=== PATIENT | female | born 1985 | race Caucasian/White ===

== ENCOUNTER 2020-03-24 14:35 | Inpatient (IN) | payer OTHER ==
[~2020-03-24] VITALS: Ht 172.7 cm; Wt 127.2 kg
[2020-03-24] MEDS ORDERED: SODIUM CHLORIDE 0.9% 1000ML 1,000 ML IV STA (14:52)
[2020-03-24] MEDS ORDERED: ONDANSETRON HCL INJ 2MG/ML 2ML 2 MG/ML VIAL IV STA (14:52)
[2020-03-24] MEDS ORDERED: MORPHINE SULFATE INJ 4 MG/ML INJ 1ML IV STA (14:52)
[2020-03-24] MEDS ORDERED: PANTOPRAZOLE 40 MG 10ML VIAL IV STA (14:52)
[2020-03-24 15:20] LABS: BASOPHILS % 0.5 % (0.0-1.0); EOSINOPHILS # (AUTO) 0.2 (0.0-0.4); EOSINOPHILS % 2.8 % (0.0-6.0); HEMATOCRIT 35.8 % (34.2-44.1); HEMOGLOBIN 11.6 g/dL (12.0-16.0); LYMPHOCYTES # (AUTO) 2.7 (1.0-3.2); LYMPHOCYTES % 31.6 % (18.0-39.1); MEAN CORPUSCULAR HEMOGLOBIN 24.9 pg (28-32); MEAN CORPUSCULAR HGB CONC 32.4 g/dL (31-35); MONOCYTES # (AUTO) 0.8 (0.2-0.8); MONOCYTES % 9.7 % (4.4-11.3); NEUTROPHILS # (AUTO) 4.7 (2.1-6.9); PLATELET COUNT 246 x10e3/uL (140-360); RED BLOOD COUNT 4.65 x10e6/uL (3.6-5.1); RED CELL DISTRIBUTION WIDTH 14.6 % (11.7-14.4)
[2020-03-24 15:31] LABS: INR 0.96; PROTHROMBIN TIME 13.3 seconds (11.9-14.5)
[2020-03-24 15:32] LABS: PARTIAL THROMBOPLASTIN TIME 27.9 seconds (23.8-35.5)
[2020-03-24 15:41] LABS: ALANINE AMINOTRANSFERASE 18 IU/L (0-55); ALBUMIN 3.1 g/dL (3.5-5.0); ALBUMIN/GLOBULIN RATIO 0.8 (0.8-2.0); ALKALINE PHOSPHATASE 58 IU/L (40-150); AMYLASE 42 U/L (25-125); ANION GAP 15.8 mmol/L (8-16); BLOOD UREA NITROGEN 6 mg/dL (7-26); BUN/CREATININE RATIO 7 (6-25); CALCIUM 8.5 mg/dL (8.4-10.2); CARBON DIOXIDE 23 mmol/L (22-29); CHLORIDE 104 mmol/L (98-107); CREATINE KINASE 92 IU/L (29-168); CREATININE, SERUM 0.83 mg/dL (0.57-1.11); EST GLOMERULAR FILTRATION RATE > 60 ML/MIN (60-); GLUCOSE 95 mg/dL (74-118); LIPASE 26 U/L (8-78); MAGNESIUM 1.6 MG/DL (1.3-2.1); POTASSIUM 3.8 mmol/L (3.5-5.1); SODIUM 139 mmol/L (136-145)
--- NOTE | 2020-03-24 17:03 | Diagnostic Imaging Report ---
EXAM: CT of the abdomen and pelvis with intravenous contrast HISTORY: ^LUQ/WILBUR/RUQ ABD PAIN COMPARISON: None TECHNIQUE: Abdomen and pelvis were scanned utilizing a multidetector helical scanner. Coronal and sagittal reformations were obtained. Scan was performed during the portal venous phase. DOSE REDUCTION: The examination was performed according to the departmental dose-optimization program, which includes automated exposure control, adjustment of the mA and/or kV according to patient size and/or use of iterative reconstruction technique. FINDINGS: LINES and TUBES: None. LOWER THORAX: Unremarkable. HEPATOBILIARY: No focal hepatic lesions. No biliary ductal dilation. GALLBLADDER: No radio-opaque stones or sludge. No wall thickening. SPLEEN: No splenomegaly. PANCREAS: No focal masses or ductal dilatation. ADRENALS: No adrenal nodules. KIDNEYS/URETERS: Kidneys enhance symmetrically. No hydronephrosis. No cystic or solid mass lesions. No stones. GI TRACT: Distal descending colon/sigmoid wall thickening with surrounding soft tissue stranding. No abnormal distention or evidence of bowel obstruction. PELVIC ORGANS/BLADDER: Unremarkable. LYMPH NODES: No lymphadenopathy. VESSELS: Unremarkable PERITONEUM / RETROPERITONEUM: No free air or fluid. BONES: Unremarkable SOFT TISSUES: Unremarkable. IMPRESSION: Left lower quadrant colitis, inflammatory versus infectious. Signed by: Edgar Weber MD on 03/24/2020 4:59 PM
--- NOTE | 2020-03-24 17:05 | Diagnostic Imaging Report ---
TECHNIQUE: Frontal view of the chest. INDICATION: ^ABD PAIN COMPARISON: None. IMPRESSION: Lines and hardware: None. Heart and mediastinum: Unremarkable. Lungs and pleura: No focal airspace consolidation. No pleural effusion. No pneumothorax. Soft tissues and bones: No acute abnormality. Signed by: Edgar Weber MD on 03/24/2020 5:02 PM
[2020-03-24] MEDS ORDERED: MORPHINE SULFATE INJ 4 MG/ML INJ 1ML IV PRN (17:30)
--- NOTE | 2020-03-24 18:01 | Emergency Department Note ---
History of Present Illnes History of Present Illness Chief Complaint: Abdominal Complaints History of Present Illness This is a 34 year old female abdominal pain, states that she was scheduled for CT, EGD and colonoscopy. Reports that pain has been present for 2 weeks, reports pain after drinking and eating. Historian: Patient Arrival Mode: Car Indirect Fire Infantryman Required: No Location: ABDOMEN Quality: PAIN Radiation: Reports non-radiation Severity: severe Onset quality: gradual Timing of current episode: intermittent Progression: worsening Chronicity: new Context: Denies recent illness Relieving factors: none Exacerbating factors: eating Associated symptoms: Reports denies other symptoms Past Medical/Family History Physician Review I have reviewed the patient's past medical and family history. Any updates have been documented here. Past Medical History Recent Fever: No Clinical Suspicion of Infectio: No New/Unexplained Change in Ment: No Past Medical History: None Past Surgical History: Social History Smoking Cessation: Never Smoker Counseling Performed: No Alcohol Use: None Any Illegal Drug Use: No TB Exposure/Symptoms: No Physically hurt or threatened: No Other Any Pre-Existing Lines (PICC,: No Is patient up to date on immun: Yes Last Flu: utd Last Pneumovax: utd Review of Systems Review of Systems Constitutional: Reports no symptoms EENTM: Reports no symptoms Cardiovascular: Reports no symptoms Respiratory: Reports no symptoms Gastrointestinal: Reports as per HPI Genitourinary: Reports no symptoms Musculoskeletal: Reports no symptoms Integumentary: Reports no symptoms Neurological: Reports no symptoms Psychological: Reports no symptoms Endocrine: Reports no symptoms Hematological/Lymphatic: Reports no symptoms Physical Exam Related Data Allergies: Coded Allergies: promethazine (Verified Allergy, Severe, pain, 03/24/20) Triage Vital Signs Vital Signs Date Time Temp Pulse Resp B/P (MAP) Pulse Ox O2 Delivery O2 Flow Rate FiO2 03/24/20 14:49 97.1 128 18 154/98 100 Vital signs reviewed: Yes Physical Exam CONSTITUTIONAL Constitutional: Present well-developed, Present well-nourished HENT HENT: Present normocephalic, Present atraumatic, Present oropharynx clear/moist, Present nose normal HENT L/R: Present left ext ear normal, Present right ext ear normal EYES Eyes: Reports PERRL, Reports conjunctivae normal NECK Neck: Present ROM normal PULMONARY Pulmonary: Present effort normal, Present breath sounds normal CARDIOVASCULAR Cardiovascular: Present regular rhythm, Present heart sounds normal, Present capillary refill normal, Present normal rate GASTROINTESTINAL Abdominal: Present soft, Present tender (LUQ AND LLQ MOD TENDERNESS WITHOUT R/G); Absent left CVA tenderness, Absent right CVA tenderness GENITOURINARY Genitourinary: Present exam deferred SKIN Skin: Present warm, Present dry MUSCULOSKELETAL Musculoskeletal: Present ROM normal NEUROLOGICAL Neurological: Present alert, Present oriented x 3, Present no gross motor or sensory deficits PSYCHOLOGICAL Psychological: Present mood/affect normal, Present judgement normal Results Laboratory Result Diagram: 03/24/20 1505 03/24/20 1505 Laboratory Laboratory Tests Test 03/24/20 15:05 White Blood Count 8.57 x10e3/uL (4.8-10.8) Red Blood Count 4.65 x10e6/uL (3.6-5.1) Hemoglobin 11.6 g/dL (12.0-16.0) Hematocrit 35.8 % (34.2-44.1) Mean Corpuscular Volume 77.0 fL (81-99) Mean Corpuscular Hemoglobin 24.9 pg (28-32) Mean Corpuscular Hemoglobin Concent 32.4 g/dL (31-35) Red Cell Distribution Width 14.6 % (11.7-14.4) Platelet Count 246 x10e3/uL (140-360) Neutrophils (%) (Auto) 55.0 % (38.7-80.0) Lymphocytes (%) (Auto) 31.6 % (18.0-39.1) Monocytes (%) (Auto) 9.7 % (4.4-11.3) Eosinophils (%) (Auto) 2.8 % (0.0-6.0) Basophils (%) (Auto) 0.5 % (0.0-1.0) Neutrophils # (Auto) 4.7 (2.1-6.9) Lymphocytes # (Auto) 2.7 (1.0-3.2) Monocytes # (Auto) 0.8 (0.2-0.8) Eosinophils # (Auto) 0.2 (0.0-0.4) Basophils # (Auto) 0.0 (0.0-0.1) Absolute Immature Granulocyte (auto 0.03 x10e3/uL (0-0.1) Prothrombin Time 13.3 seconds (11.9-14.5) Prothromb Time International Ratio 0.96 Activated Partial Thromboplast Time 27.9 seconds (23.8-35.5) Sodium Level 139 mmol/L (136-145) Potassium Level 3.8 mmol/L (3.5-5.1) Chloride Level 104 mmol/L (98-107) Carbon Dioxide Level 23 mmol/L (22-29) Anion Gap 15.8 mmol/L (8-16) Blood Urea Nitrogen 6 mg/dL (7-26) Creatinine 0.83 mg/dL (0.57-1.11) Estimat Glomerular Filtration Rate > 60 ML/MIN (60-) BUN/Creatinine Ratio 7 (6-25) Glucose Level 95 mg/dL (74-118) Calcium Level 8.5 mg/dL (8.4-10.2) Magnesium Level 1.6 MG/DL (1.3-2.1) Total Bilirubin 0.8 mg/dL (0.2-1.2) Aspartate Amino Transf (AST/SGOT) 16 IU/L (5-34) Alanine Aminotransferase (ALT/SGPT) 18 IU/L (0-55) Alkaline Phosphatase 58 IU/L (40-150) Creatine Kinase 92 IU/L (29-168) Creatine Kinase MB 0.90 ng/mL (0-5.0) Troponin I 0.008 ng/mL (0-0.300) Total Protein 6.8 g/dL (6.5-8.1) Albumin 3.1 g/dL (3.5-5.0) Globulin 3.7 g/dL (2.3-3.5) Albumin/Globulin Ratio 0.8 (0.8-2.0) Amylase Level 42 U/L (25-125) Lipase 26 U/L (8-78) Human Chorionic Gonadotropin, Qual Negative (NEGATIVE) Lab results reviewed: Yes Imaging Imaging results reviewed: Yes Impressions Procedure: [id number] CT/CT ABDOMEN/PELVIS W Exam Date: Exam Time: REPORT STATUS: Signed EXAM: CT of the abdomen and pelvis with intravenous contrast HISTORY: ^LUQ/WILBUR/RUQ ABD PAIN COMPARISON: None TECHNIQUE: Abdomen and pelvis were scanned utilizing a multidetector helical scanner. Coronal and sagittal reformations were obtained. Scan was performed during the portal venous phase. DOSE REDUCTION: The examination was performed according to the departmental dose-optimization program, which includes automated exposure control, adjustment of the mA and/or kV according to patient size and/or use of iterative reconstruction technique. FINDINGS: LINES and TUBES: None. LOWER THORAX: Unremarkable. HEPATOBILIARY: No focal hepatic lesions. No biliary ductal dilation. GALLBLADDER: No radio-opaque stones or sludge. No wall thickening. SPLEEN: No splenomegaly. PANCREAS: No focal masses or ductal dilatation. ADRENALS: No adrenal nodules. KIDNEYS/URETERS: Kidneys enhance symmetrically. No hydronephrosis. No cystic or solid mass lesions. No stones. GI TRACT: Distal descending colon/sigmoid wall thickening with surrounding soft tissue stranding. No abnormal distention or evidence of bowel obstruction. PELVIC ORGANS/BLADDER: Unremarkable. LYMPH NODES: No lymphadenopathy. VESSELS: Unremarkable PERITONEUM / RETROPERITONEUM: No free air or fluid. BONES: Unremarkable SOFT TISSUES: Unremarkable. IMPRESSION: Left lower quadrant colitis, inflammatory versus infectious. Signed by: Edgar Weber MD on 03/24/2020 4:59 PM CXR IMPRESSION: Lines and hardware: None. Heart and mediastinum: Unremarkable. Lungs and pleura: No focal airspace consolidation. No pleural effusion. No pneumothorax. Soft tissues and bones: No acute abnormality. Signed by: Edgar Weber MD on 03/24/2020 5:02 PM Assessment & Plan Medical Decision Making [facility] ABD PAIN - CHECK CBC, CHEM, LIPASE, CARDIAC MARKERS, PREG, UA/CX, CT ABD/PELVIS - R/O DIVERTICULITIS, UTI, COLITIS, PANCREATITIS, RENAL INSUFF, DEHYDRATION, ELECTROLYTE ABNL Reassessment Reassessment DISCUSSED WITH DR HARRIS FOR ADMISSION, DR Rosalia HERNDON OUTSIDE CUTTER Assessment & Plan Final Impression: (1) Colitis (2) Abdominal pain Last Vital Signs Date Time Temp Pulse Resp B/P (MAP) Pulse Ox O2 Delivery O2 Flow Rate FiO2 03/24/20 17:46 98.6 109 16 113/73 99 Medications in the ED Pantoprazole Sodium 40 mg ONCE STAT IV Last administered on 03/24/20at 15:43; Admin Dose 40 MG; Start 03/24/20 at 14:52; Stop 03/24/20 at 14:59; Status DC Morphine Sulfate 4 mg ONCE STAT IV Last administered on 03/24/20at 15:43; Admin Dose 4 MG; Start 03/24/20 at 14:52; Stop 03/24/20 at 14:59; Status DC Ondansetron HCl 4 mg ONCE STAT IV Last administered on 03/24/20at 15:43; Admin Dose 4 MG; Start 03/24/20 at 14:52; Stop 03/24/20 at 14:59; Status DC Sodium Chloride 1,000 ml @ 0 mls/hr Q0M STAT IV Last administered on 03/24/20at 15:43; Admin Dose 999 MLS/HR; Start 03/24/20 at 14:52; Stop 03/24/20 at 14:56; Status DC LG DANG MD Mar 24, 2020 18:01
[2020-03-24] MEDS: PIPER-TAZ 3.375 GM 50 ML IV SCH (18:37)
[2020-03-24] MEDS: SODIUM CHLORIDE 0.9% 1000ML 1,000 ML IV SCH (18:37)
[2020-03-24] MEDS: METRONIDAZOLE 500MG/NS 100ML 100 ML IV SCH (19:54)
[2020-03-24 20:25] VITALS: BP 109/52
[2020-03-24] MEDS ORDERED: METOPROLOL TARTRATE INJ 1 MG/ML VIAL IV PRN (20:30)
[2020-03-24 20:45] VITALS: BP 109/52
[2020-03-24] MEDS: ACETAMINOPHEN 325 MG TAB PO PRN (20:57)
[2020-03-24 21:03] LABS: CLARITY,URINE SL CLOUDY (CLEAR); COLOR,URINE RED (YELLOW)
[2020-03-24 21:04] LABS: BILIRUBIN,URINE SMALL (NEGATIVE); KETONES,URINE NEGATIVE (NEGATIVE); LEUKOCYTE ESTERASE ,URINE NEGATIVE (NEGATIVE); NITRITE,URINE NEGATIVE (NEGATIVE); PROTEIN,URINE DIPSTICK 2+ (NEGATIVE); URINE UROBILINOGEN 0.2 mg/dL (0.2 - 1)
[2020-03-24] MEDS ORDERED: HYDROCODONE/APAP 5MG-325MG TAB PO PRN (21:15)
[2020-03-24 21:18] LABS: BACTERIA,URINE MODERATE /HPF; RBC,URINE >50 /HPF (0-5)
[2020-03-24] MEDS: MORPHINE SULFATE 2 MG/ML SYR 1ML IV PRN (22:25)
[2020-03-24] MEDS: ONDANSETRON HCL INJ 2MG/ML 2ML 2 MG/ML VIAL IV PRN (22:25)
[2020-03-24] MEDS ORDERED: BISACODYL 5 MG TAB EC PO ONE ×3 (22:30→23:30)
[2020-03-24] MEDS ORDERED: CITRATE OF MAGNESIA 300ML BOTTLE PO ONE (23:30)
[2020-03-25] VITALS (8 sets, daily range): BP systolic 90–122; BP diastolic 46–97
--- NOTE | 2020-03-25 01:36 | History and Physical ---
PRIMARY CARE PHYSICIAN: Hitesh Solorzano MD CONSULTING PHYSICIAN: Desmond Jules MD CHIEF COMPLAINT: Abdominal pain. HISTORY OF PRESENT ILLNESS: The patient is a 34-year-old female, who was admitted via the emergency department with abdominal pain. She states that she was scheduled for CT, EGD, and colonoscopy per the emergency department physician's notes. She reported that the pain had been present for 2 weeks and also present after drinking and eating that was gradual in onset, intermittent, and then continued to progressively get worse. She explained to me that she was having back pain, went to see her PCP, Dr. Solorzano, on or about March 02 or . At the time, she was taking steroids, Toradol, prednisone, naproxen, and muscle relaxers for the back pain and the prednisone had been on a 7-day step-down regimen. Then 1 or 2 days after the prednisone, she began having the abdominal pain, which was diffuse all over. She also expressed that she was having diarrhea and nausea, especially with cold liquids. The pain would not cease and became intolerable. After about 3 days of the diarrhea, she noted that she was having bright red blood per rectum, thus she came into the ER for evaluation. PAST MEDICAL HISTORY: Hypertension with her last , but after the the hypertension dissipated, has some history of migraines, has psoriasis. PAST SURGICAL HISTORY: Tubes in her ears as a child. [place] teeth removed. After her , she had tubal ligation. Cysts removed from her head. FAMILY HISTORY: Mother had GI problems with diverticulitis and spastic ileitis. SOCIAL HISTORY: She has a history of smoking about a pack of cigarettes a week for 6 years. She drink alcohol some when she was younger, but has since quit. Denies any illicit drug use. 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 ALLERGIES: THE PATIENT STATES SHE WAS HAVING SOME MIGRAINES AND WENT TO HER DOCTOR'S OFFICE, RECEIVED A DOSE OF PHENERGAN IN THE MUSCLE AT THE RIGHT THIGH AREA AND SHE SAID, SOON SHE RECEIVED IT, THE RIGHT LEG BEGAN BURNING SIGNIFICANTLY AFTER SHE RECEIVED IT. HOME MEDICATIONS: No home medications listed. CURRENT MEDICATIONS: Zosyn, Flagyl, normal saline IV fluids at 100 mL an hour, p.r.n. Zofran, Protonix, Tylenol, metoprolol tartrate 2.5 mg IV every 6 hours p.r.n. for systolic blood pressure greater than 150, Warren, morphine sulfate 1 mg IV every 3 hours p.r.n. for pain. REVIEW OF SYSTEMS: CONSTITUTIONAL: Received Tylenol for fever. Expresses weight gain of about 8 pounds, but unsure what that is from. No complaints of shortness of breath, cough, phlegm, difficulty urinating, psychiatric history. EYES: She wears glasses. EARS, NOSE, THROAT: No complaints. CARDIOVASCULAR: She has had palpitations before when dehydrated. GASTROINTESTINAL: As per history of present illness. She is taking morphine for the abdominal pain. MUSCULOSKELETAL: No complaints of joint pain or muscle discomfort. NEUROLOGIC: Rates her headache a 3/10 on a 0 to 10 pain scale. Morphine is effective. ENDOCRINE: Denies history of diabetes. HEMATOLOGIC: Having bright red blood per rectum. PHYSICAL EXAMINATION: VITAL SIGNS: Temperature 100, which is her T-max, heart rate 111, blood pressure 109/52, respirations 18, and oxygen saturation 100%. Height 5 feet 8 inches, weight 288 pounds. BMI 43.78. GENERAL: Supine in bed. Has bathroom privileges. LUNGS: Clear to auscultation. Respiratory pattern even and unlabored. HEENT: EOMI. NECK: Supple. CARDIOVASCULAR: Regular rate and rhythm. No murmur. ABDOMEN: Bowel sounds are positive. Abdomen tender without guarding. No rebound. Diffuse tenderness, mostly in right lower quadrant and left lower quadrant. EXTREMITIES: No pitting edema. No clubbing, cyanosis, or marked swelling. NEUROLOGIC: GCS 15. Nonfocal. LABORATORY DATA: WBC 8.57, hemoglobin 11.6, hematocrit 35.8, platelets 246. PT 13.3, INR 0.96, PTT 27.9. Sodium 139, potassium 3.8, chloride 104, CO2 of 23, anion gap 15.8, BUN 6, creatinine 0.83, estimated GFR greater than 60, glucose 95, calcium 8.5, magnesium 1.6, total bilirubin 0.8, AST 16, ALT 18, alkaline phosphatase 58. Creatine kinase 92, CK-MB 0.9. Troponin I 0.008. Total protein 6.8, albumin 3.1, amylase 42, lipase 26. HCG, human chorionic gonadotropin qualitative negative. Urinalysis with red color, slightly cloudy clarity, specific gravity 1.015, protein 2+, large amount of blood, negative for nitrites, small amount of bilirubin, leukocyte esterase negative, rbc's greater than 50, moderate amount of bacteria. Serology coronavirus PCR is pending. Microbiology urine culture and sensitivity pending. Chest x-ray negative. CT of the abdomen and pelvis showed left lower quadrant colitis, inflammatory versus infectious. ASSESSMENT AND PLAN: 1. Left lower quadrant colitis. Gastroenterology has been consulted. The patient is currently being prepped for colonoscopy in the morning with Dulcolax and magnesium citrate. The patient is on Zosyn and Flagyl IV antibiotics. 2. Anemia due to acute blood loss. Continue to monitor H and H. Transfuse blood if hemoglobin less than 7. 3. Dehydration. Continue IV fluids normal saline at 100 mL an hour. Monitor renal function, BUN 6, creatinine 0.83. 4. Acute hypomagnesemia. Magnesium level 1.6, replete with 2 g magnesium sulfate IV. 5. Morbid obesity with BMI 43.78. Dietary restrictions. 6. Prophylaxis, Protonix. Billing code [id number]. Time spent 60 minutes. Dictated by Tru Mckenzie NP MD DAVID Santos/CARL /[id number]
[2020-03-25] MEDS: METRONIDAZOLE 500MG/NS 100ML 100 ML IV SCH ×4 (01:45→21:20)
[2020-03-25] MEDS ORDERED: DICYCLOMINE HCL 20 MG TAB PO ONE (01:45)
[2020-03-25] MEDS: MORPHINE SULFATE 2 MG/ML SYR 1ML IV PRN ×3 (01:45→09:11)
[2020-03-25] MEDS ORDERED: CITRATE OF MAGNESIA 300ML BOTTLE PO ONE (05:00)
[2020-03-25] MEDS: ONDANSETRON HCL INJ 2MG/ML 2ML 2 MG/ML VIAL IV PRN ×3 (06:03→11:35)
[2020-03-25] MEDS: PIPER-TAZ 3.375 GM 50 ML IV SCH ×4 (06:03→18:30)
[2020-03-25] MEDS: SODIUM CHLORIDE 0.9% 1000ML 1,000 ML IV SCH (06:38)
[2020-03-25 07:03] LABS: BASOPHILS # (AUTO) 0.1 (0.0-0.1); BASOPHILS % 0.9 % (0.0-1.0); EOSINOPHILS # (AUTO) 0.2 (0.0-0.4); EOSINOPHILS % 1.9 % (0.0-6.0); HEMATOCRIT 35.2 % (34.2-44.1); HEMOGLOBIN 11.2 g/dL (12.0-16.0); LYMPHOCYTES % 22.3 % (18.0-39.1); MEAN CORPUSCULAR HEMOGLOBIN 25.2 pg (28-32); MEAN CORPUSCULAR HGB CONC 31.8 g/dL (31-35); MEAN CORPUSCULAR VOLUME 79.3 fL (81-99); MONOCYTES # (AUTO) 0.8 (0.2-0.8); MONOCYTES % 9.5 % (4.4-11.3); NEUTROPHILS # (AUTO) 5.7 (2.1-6.9); NEUTROPHILS % 64.8 % (38.7-80.0); PLATELET COUNT 219 x10e3/uL (140-360); RED BLOOD COUNT 4.44 x10e6/uL (3.6-5.1); RED CELL DISTRIBUTION WIDTH 14.6 % (11.7-14.4)
[2020-03-25 07:23] LABS: ALANINE AMINOTRANSFERASE 15 IU/L (0-55); ALBUMIN 2.8 g/dL (3.5-5.0); ALBUMIN/GLOBULIN RATIO 0.8 (0.8-2.0); ALKALINE PHOSPHATASE 55 IU/L (40-150); ANION GAP 13.5 mmol/L (8-16); BLOOD UREA NITROGEN 6 mg/dL (7-26); BUN/CREATININE RATIO 7 (6-25); CALCIUM 7.7 mg/dL (8.4-10.2); CARBON DIOXIDE 23 mmol/L (22-29); CHLORIDE 105 mmol/L (98-107); CREATININE, SERUM 0.87 mg/dL (0.57-1.11); EST GLOMERULAR FILTRATION RATE > 60 ML/MIN (60-); GLUCOSE 112 mg/dL (74-118); POTASSIUM 3.5 mmol/L (3.5-5.1); SODIUM 138 mmol/L (136-145)
[2020-03-25 07:54] LABS: MAGNESIUM 1.9 MG/DL (1.3-2.1); PHOSPHORUS 2.9 MG/DL (2.3-4.7)
--- NOTE | 2020-03-25 08:00 | NUR ---
PT NPO FOR PROCEDURE
[2020-03-25] MEDS ORDERED: PANTOPRAZOLE 40 MG 10ML VIAL IV SCH ×2 (09:00→18:30)
[2020-03-25] MEDS ORDERED: DICYCLOMINE HCL 20 MG TAB PO SCH (09:00)
--- NOTE | 2020-03-25 09:33 | NUR ---
RCD PT AT BED PT IS ALERT AND ORIENTED PT RESTING ON BED IV PATENT AND RUNNING 125 ML HR BED LOW AND LOCKED CALL LIGHT IN REACH
[2020-03-25 11:18] LABS: EOSINOPHILS % (MANUAL) 1 % (0-7); LYMPHOCYTES % (MANUAL) 20 % (19-48); MONOCYTES % (MANUAL) 7 % (3.4-9.0); NEUTROPHILS % (MANUAL) 72 % (40-74)
--- NOTE | 2020-03-25 12:54 | NUR ---
DR Rosalia HERNDON ASKED ABOT THE CONDITION OF THE PT THE PT IS NOT CLEAR STILL IN BROWN STOOL GOT THE ORDER TAP WATER ENEMA 2 TIMES
--- NOTE | 2020-03-25 13:15 | NUR ---
TAP WATER ENEMA (2 ) GIVEN
[2020-03-25] MEDS ORDERED: MORPHINE SULFATE 2 MG/ML SYR 1ML IV STA (13:27)
[2020-03-25] MEDS ORDERED: MIDAZOLAM HCL 5 MG/ML VIAL ONE (13:48)
[2020-03-25] MEDS ORDERED: FENTANYL CITRATE/PF 100MCG/2 ML INJ ONE (13:48)
--- NOTE | 2020-03-25 14:00 | NUR ---
PATIENT CLEAR ,PAGED AND NOTIFIED DR Rosalia HERNDON HE SAID ITS OK HE CAN DO THE PROCEDURE TODAY
[2020-03-25] MEDS ORDERED: PROPOFOL IV EMULSION 10 MG/ML 20 ML VIAL ONE (14:29)
--- NOTE | 2020-03-25 16:20 | NUR ---
PT BACK AFTER PROCEDURE PT IS ALERT AND ORIENTED VITALS CHECKED PT RESTING ON BED FAMILY AT BED SIDE BED LOW AND LOCKED CALL LIGHT IN REACH Addendum: 03/25/20 at 1831 by Betsy Lanier RN WRONG TIME
--- NOTE | 2020-03-25 16:28 | NUR ---
PATIENT WENT TO PROCEDURE IN SAFE CONDITION
--- NOTE | 2020-03-25 18:20 | NUR ---
PT BACK AFTER PROCEDURE PT IS ALERT AND ORIENTED VITALS CHECKED PT RESTING ON BED FAMILY AT BED SIDE BED LOW AND LOCKED CALL LIGHT IN REACH
[2020-03-25] MEDS: DICYCLOMINE HCL 20 MG TAB PO SCH ×2 (18:30→21:20)
[2020-03-25 18:47] LABS: WBC,FECAL (FECAL LACTOFERRIN) POSITIVE (NEGATIVE)
--- NOTE | 2020-03-25 18:48 | NUR ---
PT RESTING ON BED BED SIDE REPORT GIVEN TO ONCOMING NURSE
[2020-03-25 19:52] LABS: FERRITIN 68.46 ng/mL (4.63-204.00)
[2020-03-25] MEDS: MESALAMINE 1,000 MG SUPP RC SCH (21:20)
--- NOTE | 2020-03-25 21:41 | Operative Report ---
DATE OF PROCEDURE: 03/25/2020 SURGEON: Desmond Juels MD PROCEDURES: EGD with polypectomy and biopsies and colonoscopy with biopsies. ADDITIONAL REFERRING PHYSICIAN: Dr. Donato Redding. INDICATIONS FOR EGD: Upper abdominal pain and nausea. INDICATIONS FOR COLONOSCOPY: Bloody diarrhea. MEDICATIONS: The patient was done under MAC, please see anesthesiologist's note. PROCEDURE IN DETAIL: With the patient in the left lateral decubitus position, a flexible fiberoptic Olympus gastroscope was introduced into the esophagus under direct visualization without any difficulty. There was some patchy erythema noted in distal esophagus. The scope was then advanced with ease to the stomach. Mucosa overlying the antrum and the body revealed some patchy intense erythema and [id number] edema, and biopsies were obtained and sent to stain for H. pylori. An approximately 4 mm polyp was noted in the distal body that was partially excised with the cold biopsy forceps. Pylorus was of normal contour and shape, was intubated with ease and the scope was advanced all the way to the second portion of the duodenum. The scope was then withdrawn slowly. Mucosa overlying the proximal second portion and the duodenal bulb was unremarkable. Biopsies were obtained to rule out sprue. The scope was withdrawn back into the stomach and retroflexed, and mucosa overlying the fundus and the cardia appeared to be within normal limits. The scope was then straightened out, it was subsequently withdrawn, and the patient tolerated the procedure well. IMPRESSION: 1. Distal esophagitis, mild. 2. Gastritis, biopsied, biopsies sent to stain for Helicobacter pylori. 3. Gastric polyp, distal body, partially excised with the cold biopsy forceps. 4. Rule out sprue. PLAN: Follow up histology. Initiate Protonix 40 mg IV b.i.d. and initiate clear liquids. The patient was then turned around and after adequate lubrication of the anal canal, a flexible fiberoptic Olympus colonoscope was inserted into the rectum under direct visualization and advanced to approximately 70 cm from the anal verge. The scope could not be advance any further due to an excessively ulcerative mucosa. The scope was then advanced any further, as it was looping in the left colon to avoid possible perforation of the bowel. The scope was then withdrawn slowly and whatever was visualized the mucosa overlying the descending, sigmoid, and rectum was diffusely ulcerated. Biopsies were obtained. An approximately 5 mm polyp was snared from the rectum. Also, the mucosa overlying the rectum was ulcerated and biopsies were obtained. The scope was subsequently withdrawn after securing an adequate stool specimen that was sent for the appropriate stool studies. The patient tolerated the procedure well. IMPRESSION: 1. Colonoscopy to approximately 70 cm from the anal verge. Did not advance any further due to diffuse ulceration of the left colon and possibly inducing a perforation. 2. Diffusely ulcerated left colon, biopsies obtained. 3. Rectal polyp, approximately 5 mm in size, removed per hot snare polypectomy. 4. Ulcerative proctitis, biopsies obtained. PLAN: Follow up histology. Follow up stool studies. Initiate Canasa suppositories 1000 mg at bedtime and start mesalamine 2.4 g p.o. b.i.d. Desmond Jules MD [facility]/GILBERTOL /[id number] cc: MD Hitesh Santos MD
[2020-03-26] VITALS (8 sets, daily range): BP systolic 101–114; BP diastolic 57–85
[2020-03-26] MEDS: PIPER-TAZ 3.375 GM 50 ML IV SCH ×4 (00:01→17:13)
[2020-03-26] MEDS: MORPHINE SULFATE 2 MG/ML SYR 1ML IV PRN (00:08)
[2020-03-26] MEDS: ONDANSETRON HCL INJ 2MG/ML 2ML 2 MG/ML VIAL IV PRN (00:09)
[2020-03-26] MEDS: METRONIDAZOLE 500MG/NS 100ML 100 ML IV SCH ×4 (02:24→20:51)
[2020-03-26] MEDS: PANTOPRAZOLE 40 MG 10ML VIAL IV SCH ×2 (05:47→17:13)
[2020-03-26 05:50] LABS: BASOPHILS # (AUTO) 0.1 (0.0-0.1); BASOPHILS % 0.6 % (0.0-1.0); EOSINOPHILS # (AUTO) 0.2 (0.0-0.4); EOSINOPHILS % 2.4 % (0.0-6.0); HEMATOCRIT 32.9 % (34.2-44.1); HEMOGLOBIN 10.6 g/dL (12.0-16.0); LYMPHOCYTES # (AUTO) 2.2 (1.0-3.2); LYMPHOCYTES % 26.2 % (18.0-39.1); MEAN CORPUSCULAR HEMOGLOBIN 24.6 pg (28-32); MEAN CORPUSCULAR HGB CONC 32.2 g/dL (31-35); MEAN CORPUSCULAR VOLUME 76.3 fL (81-99); MONOCYTES # (AUTO) 1.1 (0.2-0.8); MONOCYTES % 12.4 % (4.4-11.3); NEUTROPHILS # (AUTO) 4.9 (2.1-6.9); NEUTROPHILS % 57.7 % (38.7-80.0); PLATELET COUNT 222 x10e3/uL (140-360); RED BLOOD COUNT 4.31 x10e6/uL (3.6-5.1); RED CELL DISTRIBUTION WIDTH 14.4 % (11.7-14.4)
[2020-03-26 06:08] LABS: ALANINE AMINOTRANSFERASE 12 IU/L (0-55); ALBUMIN 2.4 g/dL (3.5-5.0); ALBUMIN/GLOBULIN RATIO 0.8 (0.8-2.0); ALKALINE PHOSPHATASE 48 IU/L (40-150); ANION GAP 11.6 mmol/L (8-16); BLOOD UREA NITROGEN 6 mg/dL (7-26); BUN/CREATININE RATIO 7 (6-25); CALCIUM 7.1 mg/dL (8.4-10.2); CARBON DIOXIDE 24 mmol/L (22-29); CHLORIDE 100 mmol/L (98-107); CREATININE, SERUM 0.82 mg/dL (0.57-1.11); EST GLOMERULAR FILTRATION RATE > 60 ML/MIN (60-); GLUCOSE 100 mg/dL (74-118); MAGNESIUM 1.9 MG/DL (1.3-2.1); SODIUM 133 mmol/L (136-145)
[2020-03-26 06:15] LABS: POTASSIUM 2.6 mmol/L (3.5-5.1)
[2020-03-26 06:16] LABS: THYROID STIMULATING HORMONE 1.649 uIU/mL (0.350-4.940)
[2020-03-26] MEDS ORDERED: POTASSIUM CHLORIDE 10MEQ EA PO ONE ×3 (06:30→08:30)
--- NOTE | 2020-03-26 07:05 | NUR ---
RCD PT AT BED PT IS ALERT AND ORIENTED PT RESTING ON BED IV PATENT BED LOW AND LOCKED CALL LIGHT IN REACH
[2020-03-26] MEDS: MESALAMINE 400 MG CAP PO SCH ×2 (09:00→16:49)
[2020-03-26] MEDS: DICYCLOMINE HCL 20 MG TAB PO SCH ×4 (09:00→20:51)
[2020-03-26 12:39] LABS: C DIFFICILE TOXIN A&B AMP PROB NEGATIVE (NEGATIVE)
[2020-03-26] MEDS: ACETAMINOPHEN/CODEINE 300MG - 30MG TAB PO PRN ×2 (13:23→20:59)
--- NOTE | 2020-03-26 15:48 | NUR ---
NOTIFIED THE POTASSIUM LEVEL 3,3 TO HELEN PRECISION AGRONOMIST GOT NEW ORDERS
[2020-03-26] MEDS ORDERED: POTASSIUM CHLORIDE 20 MEQ TAB CR PO ONE (16:35)
--- NOTE | 2020-03-26 18:41 | NUR ---
PT RESTING ON BED BED SIDE REPORT GIVEN TO ONCOMING NURSE
--- NOTE | 2020-03-26 19:25 | NUR ---
Patient received sitting up in bed. AAO x 4. Patient had no complaints of pain. Respirations even and non-labored. Safety measures implemented. Patient instructed to call for assistance when needed. Call light within reach.
[2020-03-26] MEDS: MESALAMINE 1,000 MG SUPP RC SCH (20:51)
[2020-03-27] VITALS (7 sets, daily range): BP systolic 102–117; BP diastolic 64–77
[2020-03-27] MEDS: PIPER-TAZ 3.375 GM 50 ML IV SCH ×4 (01:39→17:19)
[2020-03-27] MEDS: METRONIDAZOLE 500MG/NS 100ML 100 ML IV SCH ×4 (03:13→20:08)
[2020-03-27] MEDS: PANTOPRAZOLE 40 MG 10ML VIAL IV SCH ×2 (06:16→17:19)
[2020-03-27 06:18] LABS: BASOPHILS # (AUTO) 0.1 (0.0-0.1); BASOPHILS % 0.5 % (0.0-1.0); EOSINOPHILS # (AUTO) 0.4 (0.0-0.4); EOSINOPHILS % 3.7 % (0.0-6.0); HEMATOCRIT 32.1 % (34.2-44.1); HEMOGLOBIN 10.5 g/dL (12.0-16.0); LYMPHOCYTES # (AUTO) 2.4 (1.0-3.2); LYMPHOCYTES % 25.2 % (18.0-39.1); MEAN CORPUSCULAR HEMOGLOBIN 25.2 pg (28-32); MEAN CORPUSCULAR HGB CONC 32.7 g/dL (31-35); MONOCYTES # (AUTO) 1.3 (0.2-0.8); MONOCYTES % 13.6 % (4.4-11.3); NEUTROPHILS # (AUTO) 5.4 (2.1-6.9); NEUTROPHILS % 56.1 % (38.7-80.0); PLATELET COUNT 252 x10e3/uL (140-360); RED BLOOD COUNT 4.17 x10e6/uL (3.6-5.1); RED CELL DISTRIBUTION WIDTH 14.3 % (11.7-14.4)
[2020-03-27] MEDS: MORPHINE SULFATE 2 MG/ML SYR 1ML IV PRN (06:30)
[2020-03-27 06:38] LABS: ALANINE AMINOTRANSFERASE 12 IU/L (0-55); ALBUMIN 2.3 g/dL (3.5-5.0); ALBUMIN/GLOBULIN RATIO 0.7 (0.8-2.0); ALKALINE PHOSPHATASE 54 IU/L (40-150); ANION GAP 8.1 mmol/L (8-16); BLOOD UREA NITROGEN < 5 mg/dL (7-26); CALCIUM 7.2 mg/dL (8.4-10.2); CARBON DIOXIDE 27 mmol/L (22-29); CHLORIDE 102 mmol/L (98-107); CREATININE, SERUM 0.73 mg/dL (0.57-1.11); EST GLOMERULAR FILTRATION RATE > 60 ML/MIN (60-); GLUCOSE 111 mg/dL (74-118); POTASSIUM 3.1 mmol/L (3.5-5.1); SODIUM 134 mmol/L (136-145)
[2020-03-27 06:40] LABS: BUN/CREATININE RATIO 7 (6-25)
--- NOTE | 2020-03-27 06:44 | NUR ---
Walking rounds done. Patient resting comfortably. Bed-side shift report given to oncoming nurse regarding patient's status.
--- NOTE | 2020-03-27 07:00 | NUR ---
RCD PT AT BED PT IS ALERT AND ORIENTED PT RESTING ON BED IV PATENT BED LOW AND LOCKED CALL LIGHT IN REACH
[2020-03-27] MEDS ORDERED: IRON SUCROSE 100 MG in SODIUM CHLORIDE 0.9% 100 ML 100 ML IV SCH (08:00)
[2020-03-27] MEDS: MESALAMINE 400 MG CAP PO SCH ×2 (09:00→17:00)
[2020-03-27] MEDS: DICYCLOMINE HCL 20 MG TAB PO SCH ×4 (09:00→20:08)
[2020-03-27] MEDS: IRON SUCROSE 100 MG in SODIUM CHLORIDE 0.9% 100 ML 100 ML IV SCH (10:00)
[2020-03-27] MEDS ORDERED: POTASSIUM CHLORIDE 20 MEQ TAB CR PO ONE ×2 (10:30→11:30)
--- NOTE | 2020-03-27 12:30 | NUR ---
PT WENT TO SHE PASSED POTASSIUM WITHOUT DIGESTED PAGED AND NOTIFIED HELEN GOT NEW ORDERS
--- NOTE | 2020-03-27 13:08 | NUR ---
PT REQUESTED TO EAT SOLID FOOD PAGED AND NOTIFIED DR Rosalia HERNDON GOT NEW ORDERS
--- NOTE | 2020-03-27 18:32 | NUR ---
4 TIMES DIARRHEA TODAY
--- NOTE | 2020-03-27 18:55 | NUR ---
PT RESTING ON BED BED SIDE REPORT GIVEN TO ONCOMING NURSE
--- NOTE | 2020-03-27 19:20 | NUR ---
received report from day nurse. patient is resting comfortably in the bed. bed is in lowest position and call light is within reach. will continue to monitor patient.
[2020-03-27] MEDS: MESALAMINE 1,000 MG SUPP RC SCH (20:08)
[2020-03-28] VITALS (8 sets, daily range): BP systolic 98–122; BP diastolic 55–80
[2020-03-28] MEDS: PIPER-TAZ 3.375 GM 50 ML IV SCH ×5 (00:12→22:30)
[2020-03-28] MEDS: METRONIDAZOLE 500MG/NS 100ML 100 ML IV SCH ×4 (01:05→21:28)
[2020-03-28] MEDS: PANTOPRAZOLE 40 MG 10ML VIAL IV SCH ×2 (05:11→17:23)
[2020-03-28] MEDS: ALBUMIN 25% 25GM 100ML 0.25 GM/ML BTL IV SCH ×4 (06:00→23:00)
--- NOTE | 2020-03-28 06:41 | NUR ---
patient is resting comfortably in the bed. bed is in the lowest position and call light is within reach.
[2020-03-28] MEDS ORDERED: ALBUMIN 25% 25GM 100ML 0.25 GM/ML BTL IV SCH ×2 (07:00)
--- NOTE | 2020-03-28 07:58 | NUR ---
Called Dr. Master Jules patient had 2 bloody bowel movements this morning, liquid mixed with stool also made him aware potassium 3.4, received orders to draw a CBC, BMP this morning.
[2020-03-28 08:26] LABS: BASOPHILS % 0.4 % (0.0-1.0); EOSINOPHILS # (AUTO) 0.4 (0.0-0.4); EOSINOPHILS % 4.2 % (0.0-6.0); HEMOGLOBIN 11.4 g/dL (12.0-16.0); LYMPHOCYTES # (AUTO) 2.4 (1.0-3.2); LYMPHOCYTES % 24.3 % (18.0-39.1); MEAN CORPUSCULAR HEMOGLOBIN 25.2 pg (28-32); MEAN CORPUSCULAR HGB CONC 32.6 g/dL (31-35); MEAN CORPUSCULAR VOLUME 77.3 fL (81-99); MONOCYTES # (AUTO) 0.9 (0.2-0.8); MONOCYTES % 9.2 % (4.4-11.3); NEUTROPHILS # (AUTO) 5.9 (2.1-6.9); NEUTROPHILS % 60.2 % (38.7-80.0); PLATELET COUNT 296 x10e3/uL (140-360); RED BLOOD COUNT 4.53 x10e6/uL (3.6-5.1); RED CELL DISTRIBUTION WIDTH 14.2 % (11.7-14.4)
[2020-03-28] MEDS: DICYCLOMINE HCL 20 MG TAB PO SCH ×4 (08:49→21:28)
[2020-03-28] MEDS: MESALAMINE 400 MG CAP PO SCH ×2 (08:51→17:23)
[2020-03-28 08:59] LABS: ANION GAP 9.9 mmol/L (8-16); BLOOD UREA NITROGEN < 5 mg/dL (7-26); CALCIUM 7.6 mg/dL (8.4-10.2); CARBON DIOXIDE 28 mmol/L (22-29); CHLORIDE 100 mmol/L (98-107); CREATININE, SERUM 0.73 mg/dL (0.57-1.11); EST GLOMERULAR FILTRATION RATE > 60 ML/MIN (60-); GLUCOSE 138 mg/dL (74-118); SODIUM 135 mmol/L (136-145)
[2020-03-28 09:16] LABS: BUN/CREATININE RATIO 7 (6-25); POTASSIUM 2.9 mmol/L (3.5-5.1)
[2020-03-28] MEDS ORDERED: POTASSIUM CHLORIDE 20MEQ/100ML 300 ML IV ONE ×3 (09:30→15:00)
[2020-03-28] MEDS: IRON SUCROSE 100 MG in SODIUM CHLORIDE 0.9% 100 ML 100 ML IV SCH ×2 (10:00→23:50)
[2020-03-28] MEDS ORDERED: MAGNESIUM SULF 1GRAM/DEXTROSE 100 ML IV ONE (10:00)
--- NOTE | 2020-03-28 12:54 | NUR ---
Handoff report to nurse Yevgeniy HARE made aware patient needs potassium chloride to be infused, potassium 2.9, also iron infusion needs to be given, and midline placement to IR has been notified. Nurse verbalized understanding.
--- NOTE | 2020-03-28 14:01 | NUR ---
UNABLE TO FIND IV POTASSIUM IN PYXUS; LAB NOTIFIED
[2020-03-28] MEDS: MORPHINE SULFATE 2 MG/ML SYR 1ML IV PRN (14:43)
[2020-03-28] MEDS: MESALAMINE 1,000 MG SUPP RC SCH (21:28)
[2020-03-28] MEDS ORDERED: SODIUM CHLORIDE 0.9% 250ML 250 ML ONE (21:38)
[2020-03-29] VITALS (9 sets, daily range): BP systolic 105–128; BP diastolic 59–80
[2020-03-29] MEDS: METRONIDAZOLE 500MG/NS 100ML 100 ML IV SCH ×3 (03:29→20:10)
[2020-03-29] MEDS: PIPER-TAZ 3.375 GM 50 ML IV SCH ×3 (04:29→12:30)
[2020-03-29] MEDS: ALBUMIN 25% 25GM 100ML 0.25 GM/ML BTL IV SCH (05:00)
[2020-03-29] MEDS: PANTOPRAZOLE 40 MG 10ML VIAL IV SCH ×2 (05:01→16:58)
[2020-03-29 07:01] LABS: BASOPHILS % 0.6 % (0.0-1.0); EOSINOPHILS # (AUTO) 0.3 (0.0-0.4); EOSINOPHILS % 3.9 % (0.0-6.0); HEMATOCRIT 29.3 % (34.2-44.1); HEMOGLOBIN 9.4 g/dL (12.0-16.0); LYMPHOCYTES # (AUTO) 1.9 (1.0-3.2); MEAN CORPUSCULAR HEMOGLOBIN 24.5 pg (28-32); MEAN CORPUSCULAR HGB CONC 32.1 g/dL (31-35); MEAN CORPUSCULAR VOLUME 76.3 fL (81-99); MONOCYTES % 13.3 % (4.4-11.3); NEUTROPHILS # (AUTO) 3.8 (2.1-6.9); NEUTROPHILS % 52.3 % (38.7-80.0); PLATELET COUNT 263 x10e3/uL (140-360); RED BLOOD COUNT 3.84 x10e6/uL (3.6-5.1); RED CELL DISTRIBUTION WIDTH 14.5 % (11.7-14.4)
--- NOTE | 2020-03-29 07:05 | NUR ---
RCD PT AT BED PT IS ALERT AND ORIENTED PT RESTING ON BED IV PATENT BY SALINE FLUSH SHE C/O SORENESS ON IV SITE BED LOW AND LOCKED CALL LIGHT IN REACH
[2020-03-29 07:20] LABS: ALANINE AMINOTRANSFERASE 10 IU/L (0-55); ALBUMIN 3.1 g/dL (3.5-5.0); ALBUMIN/GLOBULIN RATIO 1.2 (0.8-2.0); ALKALINE PHOSPHATASE 40 IU/L (40-150); ANION GAP 7.7 mmol/L (8-16); CALCIUM 7.3 mg/dL (8.4-10.2); CARBON DIOXIDE 28 mmol/L (22-29); CHLORIDE 102 mmol/L (98-107); CREATININE, SERUM 0.74 mg/dL (0.57-1.11); EST GLOMERULAR FILTRATION RATE > 60 ML/MIN (60-); GLUCOSE 100 mg/dL (74-118); MAGNESIUM 2.2 MG/DL (1.3-2.1); SODIUM 135 mmol/L (136-145)
[2020-03-29 07:26] LABS: BLOOD UREA NITROGEN < 5 mg/dL (7-26); BUN/CREATININE RATIO 7 (6-25); POTASSIUM 2.7 mmol/L (3.5-5.1)
[2020-03-29] MEDS ORDERED: POTASSIUM CHLORIDE 20MEQ/100ML 200 ML IV ONE ×2 (08:30→14:00)
[2020-03-29] MEDS: ACETAMINOPHEN/CODEINE 300MG - 30MG TAB PO PRN ×2 (08:38→14:10)
[2020-03-29] MEDS: DICYCLOMINE HCL 20 MG TAB PO SCH ×4 (09:00→20:32)
[2020-03-29] MEDS: MESALAMINE 400 MG CAP PO SCH ×2 (09:00→16:58)
[2020-03-29] MEDS ORDERED: SODIUM CHLORIDE 0.9% 250ML 250 ML ONE (12:45)
[2020-03-29 15:44] LABS: HEMATOCRIT 29.4 % (34.2-44.1); HEMOGLOBIN 9.5 g/dL (12.0-16.0)
[2020-03-29] MEDS: ALBUMIN 25% 25GM 100ML 100 ML IV SCH (17:43)
--- NOTE | 2020-03-29 17:50 | NUR ---
Nutrition Intervention Note RD Recommendation(s) for Physician: -Recommend to continue GI soft diet -Ensure Compact BID for added nutrition due to poor reported intake The patient meets criteria for unspecified SEVERE protein-calorie malnutrition. Plan of Care: RD following, monitoring for tolerance and adequacy Nutrition reason for involvement: Length of stay RD Assessment (03/29/20) Pt is a 34 year old female admitted with abdominal pain and colitis. Pt reports eating < 50% of meals for the past week. It is recorded pt has been consuming 0-30% of meals during admission. Pt also stated she had lost weight and used to weigh 294 lbs 2 weeks ago. Pt currently has a weight of 280 lbs in chart. If accurate, this would be 5% weight loss in 2 weeks severe weight loss. Pt reports she is experiencing nausea and diarrhea. No chewing/swallowing issues. Will continue to monitor. Principal Problems/Diagnoses: abdominal pain, colitis PMH: migraine, psoriasis GI: soft, non-tender, round abdomen, last recorded BM 03/29 Skin: intact Labs: (03/29) Na 135, K 2.7m BUN <5, Ca 7.3, Mg 2.2 Meds: antibiotics, protonix, IV iron, protonix, morphine, metoprolol Ht: 68 inches Wt: 280 lbs BMI: 42.6 kg/m2 IBW: 140 lbs Malnutrition Evaluation (03/29/20) The patient meets criteria for unspecified SEVERE protein-calorie malnutrition. Energy intake: <50% of estimated energy requirements for >5 days Weight loss: 5% in 2 weeks Fat loss: no loss identified per observation Muscle loss: no loss identified per observation Supporting Evidence: Fluid accumulation: unable to evaluate Functional Status: unable to evaluate Nutrition Prescription (Diet Order): GI soft diet Estimated Nutritional Needs: 2943-0479 calories/day (22-25 kcal/kg IBW) 95-127 g protein/day (1.5-2 g pro/kg IBW) Diet Adequacy: Not meeting calorie needs, Not meeting protein needs Tolerance: pt reports nausea and diarrhea Diet Education Needs Assessment: Pt was interested in diet education. RD provide pt with written materials regarding GI soft (fiber restricted) diet. Pt was not interested in verbal education at time of visit and stated she will read provided materials at a later time. Encouraged pt to contact RD if she has questions. Nutrition Care Level: high Nutrition Diagnosis: Severe malnutrition related to acute illness as evidenced by pt meeting < 50% of estimate energy needs for > 5 days and 5% weight loss in 2 weeks. Goal: Patient will meet 75-100% of estimated needs by follow up Progress: N/A Interventions: -fiber-modified diet, Commercial beverage, Monitoring/Evaluation: -Total energy intake, Total protein intake, Modified diet, Liquid supplement, Weight change, Level of knowledge Signed: Cheryl Wray RD, LD
[2020-03-29] MEDS ORDERED: PIPER-TAZ 3.375 GM 50 ML IV SCH (18:00)
--- NOTE | 2020-03-29 18:28 | NUR ---
SURFACE SUPERVISOR RECOMMENDED ENSURE COMPACT BID PAGED AND NOTIFIED HELEN GOT THE APPROVAL
--- NOTE | 2020-03-29 18:39 | NUR ---
PT RESTING ON BED BED SIDE REPORT GIVEN TO ONCOMING NURSE
[2020-03-29] MEDS: ACETAMINOPHEN 325 MG TAB PO PRN (20:32)
[2020-03-29] MEDS: MESALAMINE 1,000 MG SUPP RC SCH (20:32)
[2020-03-29] MEDS: IRON SUCROSE 100 MG in SODIUM CHLORIDE 0.9% 100 ML 100 ML IV SCH (23:00)
[2020-03-29] MEDS ORDERED: METHYLPREDNISOLONE SOD SUCC 40 MG/ML VIAL 1ML IV ONE (23:15)
[2020-03-30] VITALS (9 sets, daily range): BP systolic 105–124; BP diastolic 59–87
[2020-03-30] MEDS: ALBUMIN 25% 25GM 100ML 100 ML IV SCH ×4 (02:37→22:10)
[2020-03-30] MEDS: PANTOPRAZOLE 40 MG 10ML VIAL IV SCH ×2 (05:39→16:30)
[2020-03-30] MEDS ORDERED: METHYLPREDNISOLONE SOD SUCC 40 MG/ML VIAL 1ML IV SCH (06:00)
[2020-03-30 06:31] LABS: BASOPHILS % 0.5 % (0.0-1.0); EOSINOPHILS # (AUTO) 0.1 (0.0-0.4); EOSINOPHILS % 1.2 % (0.0-6.0); HEMATOCRIT 29.2 % (34.2-44.1); HEMOGLOBIN 9.5 g/dL (12.0-16.0); LYMPHOCYTES # (AUTO) 1.7 (1.0-3.2); LYMPHOCYTES % 21.9 % (18.0-39.1); MEAN CORPUSCULAR HEMOGLOBIN 24.9 pg (28-32); MEAN CORPUSCULAR HGB CONC 32.5 g/dL (31-35); MEAN CORPUSCULAR VOLUME 76.4 fL (81-99); MONOCYTES # (AUTO) 0.5 (0.2-0.8); MONOCYTES % 6.7 % (4.4-11.3); NEUTROPHILS % 64.6 % (38.7-80.0); PLATELET COUNT 262 x10e3/uL (140-360); RED BLOOD COUNT 3.82 x10e6/uL (3.6-5.1); RED CELL DISTRIBUTION WIDTH 14.7 % (11.7-14.4)
[2020-03-30 06:37] LABS: ALANINE AMINOTRANSFERASE 17 IU/L (0-55); ALBUMIN 3.2 g/dL (3.5-5.0); ALBUMIN/GLOBULIN RATIO 1.2 (0.8-2.0); ALKALINE PHOSPHATASE 37 IU/L (40-150); BLOOD UREA NITROGEN < 5 mg/dL (7-26); CALCIUM 7.7 mg/dL (8.4-10.2); CARBON DIOXIDE 26 mmol/L (22-29); CHLORIDE 104 mmol/L (98-107); CREATININE, SERUM 0.68 mg/dL (0.57-1.11); EST GLOMERULAR FILTRATION RATE > 60 ML/MIN (60-); GLUCOSE 143 mg/dL (74-118); MAGNESIUM 2.2 MG/DL (1.3-2.1); SODIUM 139 mmol/L (136-145)
[2020-03-30 06:39] LABS: BUN/CREATININE RATIO 7 (6-25)
[2020-03-30] MEDS: ACETAMINOPHEN/CODEINE 300MG - 30MG TAB PO PRN ×2 (07:35→23:26)
[2020-03-30] MEDS: MESALAMINE 400 MG CAP PO SCH ×2 (07:35→16:30)
[2020-03-30] MEDS: METHYLPREDNISOLONE SOD SUCC 40 MG/ML VIAL 1ML IV SCH ×2 (07:35→16:29)
[2020-03-30] MEDS: DICYCLOMINE HCL 20 MG TAB PO SCH ×4 (07:35→21:14)
--- NOTE | 2020-03-30 09:30 | NUR ---
Shawanda Castillo POOL TABLE MECHANIC aware of T 101 on 03/29/20
[2020-03-30 10:45] LABS: CLARITY,URINE CLEAR (CLEAR); COLOR,URINE YELLOW (YELLOW)
[2020-03-30 10:46] LABS: BILIRUBIN,URINE NEGATIVE (NEGATIVE); KETONES,URINE 1+ (NEGATIVE); LEUKOCYTE ESTERASE ,URINE NEGATIVE (NEGATIVE); NITRITE,URINE NEGATIVE (NEGATIVE); PROTEIN,URINE DIPSTICK NEGATIVE (NEGATIVE); URINE UROBILINOGEN 0.2 mg/dL (0.2 - 1)
[2020-03-30 10:57] LABS: BACTERIA,URINE RARE /HPF; EPITHELIAL CELLS,URINE FEW /LPF; RBC,URINE 0-5 /HPF (0-5)
[2020-03-30 12:13] LABS: BAND NEUTROPHILS % (MANUAL) 10 %; EOSINOPHILS % (MANUAL) 6 % (0-7); LYMPHOCYTES % (MANUAL) 26 % (19-48); MONOCYTES % (MANUAL) 3 % (3.4-9.0); MYELOCYTES % (MANUAL) 1 % (0-0); NEUTROPHILS % (MANUAL) 54 % (40-74)
[2020-03-30 12:15] LABS: MICROCYTOSIS SLIGHT; PLATELET ESTIMATE ADEQUATE; POLYCHROMASIA FEW
[2020-03-30 12:16] LABS: HYPOCHROMASIA SLIGHT
[2020-03-30 12:18] LABS: PLATELET MORPHOLOGY COMMENT FEW LARGE
--- NOTE | 2020-03-30 19:12 | NUR ---
Report given to oncoming nurse of patient's status. AAOX4 to time, person, place, situation. Respirations even and unlabored. Call light within reach.
[2020-03-30] MEDS: MESALAMINE 1,000 MG SUPP RC SCH (21:14)
[2020-03-30] MEDS: IRON SUCROSE 100 MG in SODIUM CHLORIDE 0.9% 100 ML 100 ML IV SCH (23:15)
[2020-03-31] VITALS (8 sets, daily range): BP systolic 104–131; BP diastolic 58–80
--- NOTE | 2020-03-31 | NUR ---
DR. HERNDON SEEN PATIENT. ASKING REGARDING STOOL ASPIRATE RESULT THAT WAS COMPLETED BUT NO RESULT RELEASED. SPOKE WITH THE LAB REGARDING PATIENT THIS TEST LAB STAFF STATES TO CALL [facility] AT [address] HERNDON WANTS TO REPEAT C DIFF TEST BUT NOT ELIGIBLE BECAUSE IT'S NOT 7 DAYS YET FROM THE FIRST TEST. DR. HERNDON IS AWARE.
[2020-03-31] MEDS: METHYLPREDNISOLONE SOD SUCC 40 MG/ML VIAL 1ML IV SCH ×5 (00:30→23:17)
[2020-03-31] MEDS ORDERED: DICYCLOMINE HCL 20 MG TAB PO PRN (01:00)
[2020-03-31] MEDS: PANTOPRAZOLE 40 MG 10ML VIAL IV SCH ×2 (05:49→16:28)
[2020-03-31] MEDS ORDERED: BALSALAZIDE DISODIUM 750 MG CAPSULE PO SCH (06:00)
--- NOTE | 2020-03-31 06:01 | NUR ---
SPOKE WITH [facility] REGARDING STOOL ASPIRATE TEST DONE ON 03/25/20 MI[facility] STAFF WILL CHECK ON IT. C DIFF TEST CANNOT BE DONE TODAY ACCORDING TO [facility] STAFF.
[2020-03-31 06:05] LABS: BASOPHILS % 0.4 % (0.0-1.0); EOSINOPHILS % 0.2 % (0.0-6.0); HEMATOCRIT 27.7 % (34.2-44.1); HEMOGLOBIN 8.8 g/dL (12.0-16.0); LYMPHOCYTES # (AUTO) 1.5 (1.0-3.2); LYMPHOCYTES % 15.6 % (18.0-39.1); MEAN CORPUSCULAR HEMOGLOBIN 24.6 pg (28-32); MEAN CORPUSCULAR HGB CONC 31.8 g/dL (31-35); MEAN CORPUSCULAR VOLUME 77.6 fL (81-99); MONOCYTES % 10.4 % (4.4-11.3); NEUTROPHILS # (AUTO) 6.6 (2.1-6.9); NEUTROPHILS % 68.1 % (38.7-80.0); PLATELET COUNT 280 x10e3/uL (140-360); RED BLOOD COUNT 3.57 x10e6/uL (3.6-5.1)
[2020-03-31 06:37] LABS: ALANINE AMINOTRANSFERASE 15 IU/L (0-55); ALBUMIN 3.8 g/dL (3.5-5.0); ALBUMIN/GLOBULIN RATIO 1.5 (0.8-2.0); ALKALINE PHOSPHATASE 36 IU/L (40-150); ANION GAP 10.5 mmol/L (8-16); BLOOD UREA NITROGEN 6 mg/dL (7-26); BUN/CREATININE RATIO 9 (6-25); CALCIUM 8.6 mg/dL (8.4-10.2); CARBON DIOXIDE 28 mmol/L (22-29); CHLORIDE 106 mmol/L (98-107); CREATININE, SERUM 0.65 mg/dL (0.57-1.11); EST GLOMERULAR FILTRATION RATE > 60 ML/MIN (60-); GLUCOSE 140 mg/dL (74-118); MAGNESIUM 2.3 MG/DL (1.3-2.1); POTASSIUM 3.5 mmol/L (3.5-5.1); SODIUM 141 mmol/L (136-145)
[2020-03-31] MEDS: BALSALAZIDE DISODIUM 750 MG CAPSULE PO SCH ×3 (08:44→22:20)
[2020-03-31 11:27] LABS: BAND NEUTROPHILS % (MANUAL) 8 %; EOSINOPHILS % (MANUAL) 1 % (0-7); LYMPHOCYTES % (MANUAL) 21 % (19-48); MONOCYTES % (MANUAL) 6 % (3.4-9.0); MYELOCYTES % (MANUAL) 2 % (0-0); NEUTROPHILS % (MANUAL) 62 % (40-74)
[2020-03-31 11:28] LABS: PLATELET ESTIMATE ADEQUATE; RBC MORPHOLOGY COMMENT NORMAL
[2020-03-31 11:29] LABS: ANISOCYTOSIS SLIGHT; OVALOCYTES FEW; POLYCHROMASIA FEW
[2020-03-31 11:30] LABS: PLATELET MORPHOLOGY COMMENT RARE EDTA CLUMPING
--- NOTE | 2020-03-31 19:35 | NUR ---
Report given to oncoming nurse of patient's status. Resting in bed. No s/s of acute distress noted. Side rails upx2, call light within reach.
--- NOTE | 2020-03-31 20:00 | NUR ---
pt received. no ss of distress noted. pt co abd pain. discussed pain mngt poc. verbalized understanding. will medicate per orders. will cont to follow poc. call juan within reach.
[2020-03-31] MEDS: ACETAMINOPHEN/CODEINE 300MG - 30MG TAB PO PRN (20:39)
[2020-03-31] MEDS: IRON SUCROSE 100 MG in SODIUM CHLORIDE 0.9% 100 ML 100 ML IV SCH (22:21)
[2020-04-01] VITALS (7 sets, daily range): BP systolic 116–142; BP diastolic 67–87
--- NOTE | 2020-04-01 04:32 | NUR ---
pt resting at time. no ss of distress noted. call juan within reach.
[2020-04-01] MEDS: METHYLPREDNISOLONE SOD SUCC 40 MG/ML VIAL 1ML IV SCH ×3 (05:45→20:38)
[2020-04-01] MEDS: BALSALAZIDE DISODIUM 750 MG CAPSULE PO SCH ×3 (05:45→22:00)
[2020-04-01] MEDS: PANTOPRAZOLE 40 MG 10ML VIAL IV SCH ×2 (05:45→18:43)
[2020-04-01 06:01] LABS: BASOPHILS # (AUTO) 0.1 (0.0-0.1); BASOPHILS % 0.7 % (0.0-1.0); EOSINOPHILS % 0.1 % (0.0-6.0); HEMATOCRIT 28.9 % (34.2-44.1); HEMOGLOBIN 9.3 g/dL (12.0-16.0); LYMPHOCYTES # (AUTO) 1.5 (1.0-3.2); LYMPHOCYTES % 12.5 % (18.0-39.1); MEAN CORPUSCULAR HEMOGLOBIN 25.4 pg (28-32); MEAN CORPUSCULAR HGB CONC 32.2 g/dL (31-35); MONOCYTES % 8.6 % (4.4-11.3); NEUTROPHILS # (AUTO) 8.4 (2.1-6.9); NEUTROPHILS % 69.9 % (38.7-80.0); PLATELET COUNT 309 x10e3/uL (140-360); RED BLOOD COUNT 3.66 x10e6/uL (3.6-5.1); RED CELL DISTRIBUTION WIDTH 15.6 % (11.7-14.4)
[2020-04-01 06:25] LABS: ALANINE AMINOTRANSFERASE 14 IU/L (0-55); ALBUMIN 3.5 g/dL (3.5-5.0); ALBUMIN/GLOBULIN RATIO 1.4 (0.8-2.0); ALKALINE PHOSPHATASE 43 IU/L (40-150); ANION GAP 11.2 mmol/L (8-16); BLOOD UREA NITROGEN 9 mg/dL (7-26); BUN/CREATININE RATIO 14 (6-25); CALCIUM 8.6 mg/dL (8.4-10.2); CARBON DIOXIDE 29 mmol/L (22-29); CHLORIDE 103 mmol/L (98-107); CREATININE, SERUM 0.63 mg/dL (0.57-1.11); EST GLOMERULAR FILTRATION RATE > 60 ML/MIN (60-); GLUCOSE 131 mg/dL (74-118); POTASSIUM 3.2 mmol/L (3.5-5.1); SODIUM 140 mmol/L (136-145)
--- NOTE | 2020-04-01 07:02 | NUR ---
CHANGE OF SHIFT REPORT RECEIVED FROM PM NURSE. PT SITTING UP IN BED, NO S/S OF DISTRESS.
[2020-04-01] MEDS: DICYCLOMINE HCL 20 MG TAB PO PRN ×3 (09:03→20:44)
[2020-04-01 09:59] LABS: BAND NEUTROPHILS % (MANUAL) 8 %; EOSINOPHILS % (MANUAL) 2 % (0-7); LYMPHOCYTES % (MANUAL) 13 % (19-48); MONOCYTES % (MANUAL) 8 % (3.4-9.0); MYELOCYTES % (MANUAL) 1 % (0-0); NEUTROPHILS % (MANUAL) 68 % (40-74); PLATELET MORPHOLOGY COMMENT NORMAL; RBC MORPHOLOGY COMMENT NORMAL
[2020-04-01 10:00] LABS: PLATELET ESTIMATE ADEQUATE
[2020-04-01] MEDS ORDERED: POTASSIUM CHLORIDE 20 MEQ TAB CR PO SCH ×2 (11:00→14:30)
[2020-04-01] MEDS: ACETAMINOPHEN 325 MG TAB PO PRN (14:50)
--- NOTE | 2020-04-01 19:36 | NUR ---
Received change of shift report from AM nurse. Walking rounds completed.
[2020-04-01] MEDS ORDERED: DIPHENOXYLATE/ATROPINE TAB PO ONE (20:30)
[2020-04-01] MEDS ORDERED: HYDROCORTISONE 100 MG/60 ML ENEMA RC SCH (21:15)
[2020-04-01] MEDS: IRON SUCROSE 100 MG in SODIUM CHLORIDE 0.9% 100 ML 100 ML IV SCH (22:11)
[2020-04-01] MEDS ORDERED: SODIUM CHLORIDE 0.9% 250ML 250 ML ONE (23:29)
[2020-04-02] VITALS (8 sets, daily range): BP systolic 110–140; BP diastolic 56–86
--- NOTE | 2020-04-02 01:07 | Diagnostic Imaging Report ---
Exam: Abdominal film Clinical History: Abdominal pain for 2 weeks Comparison: None. DISCUSSION: Frontal view of the abdomen shows a nonobstructive bowel gas pattern with mild amount of retained stool.There are no dilated, air-filled loops of bowel. There are no abnormal calcifications. No pneumoperitoneum. No acute bone abnormality. IMPRESSION: 1. Nonobstructive bowel gas pattern. The staff physician below has personally reviewed this exam on the date of dictation. Signed by: Dr. Leroy Chaudhry M.D. on 04/02/2020 1:03 AM
[2020-04-02] MEDS: METHYLPREDNISOLONE SOD SUCC 40 MG/ML VIAL 1ML IV SCH ×4 (02:49→21:05)
--- NOTE | 2020-04-02 05:00 | NUR ---
Blood drawn and sent to the lab.
[2020-04-02] MEDS ORDERED: HYDROCORTISONE 100 MG/60 ML ENEMA RC ONE (05:30)
[2020-04-02] MEDS: PANTOPRAZOLE 40 MG 10ML VIAL IV SCH ×2 (06:00→16:43)
[2020-04-02 07:05] LABS: BASOPHILS # (AUTO) 0.1 (0.0-0.1); BASOPHILS % 0.6 % (0.0-1.0); EOSINOPHILS % 0.1 % (0.0-6.0); HEMATOCRIT 32.8 % (34.2-44.1); HEMOGLOBIN 10.4 g/dL (12.0-16.0); LYMPHOCYTES # (AUTO) 1.9 (1.0-3.2); LYMPHOCYTES % 13.6 % (18.0-39.1); MEAN CORPUSCULAR HEMOGLOBIN 24.6 pg (28-32); MEAN CORPUSCULAR HGB CONC 31.7 g/dL (31-35); MEAN CORPUSCULAR VOLUME 77.7 fL (81-99); MONOCYTES # (AUTO) 0.7 (0.2-0.8); MONOCYTES % 5.1 % (4.4-11.3); NEUTROPHILS # (AUTO) 9.9 (2.1-6.9); NEUTROPHILS % 70.2 % (38.7-80.0); PLATELET COUNT 365 x10e3/uL (140-360); RED BLOOD COUNT 4.22 x10e6/uL (3.6-5.1); RED CELL DISTRIBUTION WIDTH 15.8 % (11.7-14.4)
[2020-04-02 07:27] LABS: ALANINE AMINOTRANSFERASE 14 IU/L (0-55); ALBUMIN 3.4 g/dL (3.5-5.0); ALBUMIN/GLOBULIN RATIO 1.2 (0.8-2.0); ALKALINE PHOSPHATASE 39 IU/L (40-150); ANION GAP 11.3 mmol/L (8-16); BLOOD UREA NITROGEN 8 mg/dL (7-26); BUN/CREATININE RATIO 13 (6-25); CALCIUM 8.4 mg/dL (8.4-10.2); CARBON DIOXIDE 30 mmol/L (22-29); CHLORIDE 103 mmol/L (98-107); CREATININE, SERUM 0.64 mg/dL (0.57-1.11); EST GLOMERULAR FILTRATION RATE > 60 ML/MIN (60-); GLUCOSE 129 mg/dL (74-118); POTASSIUM 3.3 mmol/L (3.5-5.1); SODIUM 141 mmol/L (136-145)
--- NOTE | 2020-04-02 07:34 | NUR ---
Enema given. Patient tolerated well. Report given to in coming nurse.
[2020-04-02] MEDS: DICYCLOMINE HCL 20 MG TAB PO PRN (09:05)
[2020-04-02] MEDS: MORPHINE SULFATE 2 MG/ML SYR 1ML IV PRN (09:13)
[2020-04-02] MEDS: ONDANSETRON HCL INJ 2MG/ML 2ML 2 MG/ML VIAL IV PRN (09:13)
[2020-04-02] MEDS ORDERED: POTASSIUM CHLORIDE 20 MEQ TAB CR PO STA (09:14)
[2020-04-02] MEDS ORDERED: POTASSIUM BICARBONATE/CIT AC 20 MEQ TABLET.EFF PO ONE ×2 (09:45→10:45)
[2020-04-02 10:50] LABS: BAND NEUTROPHILS % (MANUAL) 7 %; LYMPHOCYTES % (MANUAL) 11 % (19-48); MONOCYTES % (MANUAL) 6 % (3.4-9.0); MYELOCYTES % (MANUAL) 1 % (0-0); NEUTROPHILS % (MANUAL) 75 % (40-74); PLATELET ESTIMATE ADEQUATE; PLATELET MORPHOLOGY COMMENT NORMAL; RBC MORPHOLOGY COMMENT NORMAL
[2020-04-02] MEDS: ACETAMINOPHEN 325 MG TAB PO PRN (14:41)
--- NOTE | 2020-04-02 14:42 | NUR ---
Nutrition Intervention Note RD Recommendation(s) for Physician: -Recommend advancing to GI soft diet when medically appropriate -Encourage PO intake The patient meets criteria for unspecified SEVERE protein-calorie malnutrition. Plan of Care: RD following, monitoring for tolerance and adequacy Nutrition reason for involvement: follow up RD Assessment 04/02: Follow up. Pt was previously on a GI soft diet and is now on a full liquid diet. No N/V reported, but pt continues to have diarrhea and is consuming about 50% of liquids. Pt did not like the Ensure nutrition supplement and was not interested in receiving a different supplement. Will continue to monitor. (03/29/20) Pt is a 34 year old female admitted with abdominal pain and colitis. Pt reports eating < 50% of meals for the past week. It is recorded pt has been consuming 0-30% of meals during admission. Pt also stated she had lost weight and used to weigh 294 lbs 2 weeks ago. Pt currently has a weight of 280 lbs in chart. If accurate, this would be 5% weight loss in 2 weeks severe weight loss. Pt reports she is experiencing nausea and diarrhea. No chewing/swallowing issues. Will continue to monitor. Principal Problems/Diagnoses: abdominal pain, colitis PMH: migraine, psoriasis GI: soft, non-tender, round abdomen, last recorded BM 04/01 x 6 Skin: intact Labs: 04/02: Na 141, K 3.3, BUN 8, Ca 8.4, Glu 129 (03/29) Na 135, K 2.7m BUN <5, Ca 7.3, Mg 2.2 Meds: morphine, zofran, methylprednisolone, protonix, metoprolol Ht: 68 inches Wt: 280 lbs BMI: 42.6 kg/m2 IBW: 140 lbs Malnutrition Evaluation (03/29/20) The patient meets criteria for unspecified SEVERE protein-calorie malnutrition. Energy intake: <50% of estimated energy requirements for >5 days Weight loss: 5% in 2 weeks per pt Fat loss: no loss identified per observation Muscle loss: no loss identified per observation Supporting Evidence: Fluid accumulation: unable to evaluate Functional Status: unable to evaluate Nutrition Prescription (Diet Order): full liquid diet Estimated Nutritional Needs: 7684-3504 calories/day (22-25 kcal/kg IBW) 95-127 g protein/day (1.5-2 g pro/kg IBW) Diet Adequacy: Not meeting calorie needs, Not meeting protein needs Tolerance: pt reports diarrhea Diet Education Needs Assessment: (03/29) Pt was interested in diet education. RD provide pt with written materials regarding GI soft (fiber restricted) diet. Pt was not interested in verbal education at time of visit and stated she will read provided materials at a later time. Encouraged pt to contact RD if she has questions. Nutrition Care Level: high Nutrition Diagnosis: Severe malnutrition related to acute illness as evidenced by pt meeting < 50% of estimate energy needs for > 5 days and 5% weight loss in 2 weeks. Goal: Patient will meet 75-100% of estimated needs by follow up Progress: not progressing Interventions: -fiber-modified diet Monitoring/Evaluation: -Total energy intake, Total protein intake, Modified diet, Weight change, Level of knowledge Signed: Cheryl Wray RD, LD
[2020-04-02] MEDS ORDERED: HYOSCYAMINE 0.125 MG TAB SL PRN (16:30)
[2020-04-02] MEDS: CEFEPIME 1GM/NS 0.9% 50 ML 50 ML IV SCH ×2 (16:43→23:44)
[2020-04-02] MEDS: METRONIDAZOLE 500MG/NS 100ML 100 ML IV SCH (18:12)
--- NOTE | 2020-04-02 19:05 | NUR ---
change of shift report given to burrer hand nurse. pt in stable condition.
--- NOTE | 2020-04-02 19:15 | NUR ---
RECEIVED REPORT FROM PREVIOUS NURSE. CALL LIGHT WITHIN REACH. PATIENT IN BED. PATIENT IN NO PAIN OR DISTRESS.
--- NOTE | 2020-04-02 20:06 | Consultation ---
DATE OF CONSULTATION: 04/02/2020 CHIEF COMPLAINT: Abdominal pain and diarrhea. HISTORY OF PRESENT ILLNESS: The patient is a 34-year-old female with 2-week history of progressive abdominal pain and bloody diarrhea and was diagnosed with ulcerative colitis, placed on colonoscopy findings. The patient states she had no prior episode of colitis. She denies fever or chills. PAST MEDICAL HISTORY: Positive for hypertension, migraine headaches, and psoriasis. PAST SURGICAL HISTORY: Positive for and tubal ligation. SOCIAL HABITS: She denies smoking or drinking alcohol. REVIEW OF SYSTEMS: No chest pain, shortness of breath, cough, or fevers. PHYSICAL EXAMINATION: VITAL SIGNS: Stable, afebrile. GENERAL: She is awake, alert, in moderate discomfort. HEENT: Sclerae nonicteric. NECK: Supple. LUNGS: Clear. HEART: Regular rate and rhythm. ABDOMEN: Soft with some guarding tenderness in the epigastrium with no rebound. EXTREMITIES: No cyanosis or edema. LABORATORY DATA: White cell count is 14,000, hemoglobin of 10, and platelet count of 365. Creatinine is 0.6. CT scan showed left-sided colitis. IMAGING DATA: X-ray of the abdomen today shows nonobstructive pattern. Colonoscopy done last week showed diffuse ulceration of the left colon up to stent 70 cm with involvement of the rectum. ASSESSMENT: Active ulcerative colitis and proctitis, currently under medical management. PLAN: We will follow patient closely with you. MD ANNA Valencia/MODL /[id number]
[2020-04-02] MEDS: HYDROCORTISONE 100 MG/60 ML ENEMA RC SCH ×2 (21:00→23:44)
[2020-04-03] VITALS (8 sets, daily range): BP systolic 100–140; BP diastolic 68–85
[2020-04-03] MEDS: MORPHINE SULFATE 2 MG/ML SYR 1ML IV PRN ×2 (00:07→18:34)
[2020-04-03] MEDS: ONDANSETRON HCL INJ 2MG/ML 2ML 2 MG/ML VIAL IV PRN ×2 (00:07→18:34)
[2020-04-03] MEDS: METRONIDAZOLE 500MG/NS 100ML 100 ML IV SCH ×3 (00:59→16:50)
[2020-04-03] MEDS: METHYLPREDNISOLONE SOD SUCC 40 MG/ML VIAL 1ML IV SCH ×4 (03:20→21:37)
[2020-04-03] MEDS: PANTOPRAZOLE 40 MG 10ML VIAL IV SCH ×2 (05:29→17:52)
[2020-04-03 06:08] LABS: BASOPHILS # (AUTO) 0.1 (0.0-0.1); BASOPHILS % 0.6 % (0.0-1.0); EOSINOPHILS % 0.1 % (0.0-6.0); HEMATOCRIT 30.6 % (34.2-44.1); HEMOGLOBIN 9.5 g/dL (12.0-16.0); LYMPHOCYTES # (AUTO) 1.4 (1.0-3.2); LYMPHOCYTES % 13.6 % (18.0-39.1); MEAN CORPUSCULAR HEMOGLOBIN 25.1 pg (28-32); MEAN CORPUSCULAR VOLUME 80.7 fL (81-99); MONOCYTES # (AUTO) 0.7 (0.2-0.8); MONOCYTES % 6.6 % (4.4-11.3); NEUTROPHILS % 68.5 % (38.7-80.0); PLATELET COUNT 263 x10e3/uL (140-360); RED BLOOD COUNT 3.79 x10e6/uL (3.6-5.1)
[2020-04-03 06:27] LABS: ALANINE AMINOTRANSFERASE 14 IU/L (0-55); ALBUMIN/GLOBULIN RATIO 1.2 (0.8-2.0); ALKALINE PHOSPHATASE 37 IU/L (40-150); ANION GAP 10.2 mmol/L (8-16); BLOOD UREA NITROGEN 8 mg/dL (7-26); BUN/CREATININE RATIO 13 (6-25); CALCIUM 8.4 mg/dL (8.4-10.2); CARBON DIOXIDE 30 mmol/L (22-29); CHLORIDE 104 mmol/L (98-107); CREATININE, SERUM 0.64 mg/dL (0.57-1.11); EST GLOMERULAR FILTRATION RATE > 60 ML/MIN (60-); GLUCOSE 128 mg/dL (74-118); MAGNESIUM 2.2 MG/DL (1.3-2.1); POTASSIUM 4.2 mmol/L (3.5-5.1); SODIUM 140 mmol/L (136-145)
--- NOTE | 2020-04-03 07:00 | NUR ---
RECEIVED PATIENT AWAKE RESTING IN BED NO S/S OF DISTRESS. BED LOW, WHEELS LOCKED, SIDE RAILS X2. CALL LIGHT IN REACH WILL CONTINUE TO MONITOR PATIENT.
--- NOTE | 2020-04-03 07:22 | NUR ---
GAVE BEDSIDE SHIFT REPORT TO ONCOMING NURSE. CALL LIGHT WITHIN REACH. PATIENT IN BED. HOURLY ROUNDING PERFORMED.
[2020-04-03 07:35] LABS: ANISOCYTOSIS SLIGHT; BAND NEUTROPHILS % (MANUAL) 1 %; HYPOCHROMASIA SLIGHT; LYMPHOCYTES % (MANUAL) 20 % (19-48); METAMYELOCYTES % (MANUAL) 3 % (0-0); MICROCYTOSIS S; MONOCYTES % (MANUAL) 5 % (3.4-9.0); NEUTROPHILS % (MANUAL) 70 % (40-74); NUCLEATED RED BLOOD CELLS 1; PLATELET ESTIMATE ADEQUATE; PLATELET MORPHOLOGY COMMENT NORMAL; RBC MORPHOLOGY COMMENT ABNORMAL; TOXIC GRANULATION SLIGHT
[2020-04-03] MEDS: DICYCLOMINE HCL 20 MG TAB PO PRN ×2 (07:40→15:04)
[2020-04-03] MEDS: ACETAMINOPHEN 325 MG TAB PO PRN (07:40)
[2020-04-03] MEDS: CEFEPIME 1GM/NS 0.9% 50 ML 50 ML IV SCH ×2 (09:31→15:57)
[2020-04-03] MEDS: HYDROCORTISONE 100 MG/60 ML ENEMA RC SCH ×2 (10:57→21:37)
--- NOTE | 2020-04-03 11:26 | NUR ---
UVALDO PRIMARY RN IS TONY LEARY AND SHE CAN BE REACHED FOR DC NEEDS AT CONFIDENTIAL NUMBER [phone]
--- NOTE | 2020-04-03 11:26 | NUR ---
JAYY FAIR LOGISTICS ASSISTANT CALLED W/ UPDATE. STATES PT IS HAVING 6 BM'S A DAY, AND NAIL SPECIALIST WANTS HER AT =< 3/DAY.
--- NOTE | 2020-04-03 11:49 | Progress Note ---
DATE: SUBJECTIVE: The patient seen and evaluated. Available labs and notes reviewed. Discussed with Dr. Lei. Please refer to chart for my information. REVIEW OF SYSTEMS: Still with 4 bowel movements since 2 o'clock this morning, and it is right now about 10:30. Feels better. Still with abdominal discomfort at different spots. No nausea, vomiting, fever, chills, chest pain, shortness of breath. OBJECTIVE: VITAL SIGNS: Temperature 97.9, pulse 69, respiration 18, and blood pressure 124/78. GENERAL: Alert and oriented, no acute distress. CVS: S1, S2. CHEST: Equal expansion. Clear to auscultation. No acute distress. HEENT: Moist. No pallor. No JVD. EXTREMITIES: Moves all. ABDOMEN: With discomfort. Positive bowel sounds. MEDICATIONS: Reviewed from ID point of view, the patient is on Solu-Medrol 40 mg q.6 hours IV push, cefepime, and Flagyl. LABORATORY STUDIES: White count improved to 10.19 from 14.07, hemoglobin 9.5, platelet 263. Sodium 140, potassium 4.2, creatinine 0.64. Clostridium difficile negative x2 on 03/31 and 04/01. CMV IgG antibodies pending. Other serology is pending. MICROBIOLOGY: Urine is shows Streptococcus agalactiae, group B, stool OB negative for Salmonella, Shigella, or Campylobacter species. Blood culture negative, 72 hours from 03/30. Stool, further workup for Yersinia is pending. Biopsy from duodenum was negative, where it showed mild chronic duodenitis. Stomach showed no H pylori, however, showed a hyperplastic polyp with an increased stromal inflammation: Showed mild chronic colitis, large bowel, rectum, and polypectomy showed hyperplastic polyp, ulcerated associated chronic active colitis. ASSESSMENT AND PLAN: 1. Ulcerative colitis. 2. Proctitis. 3. Diarrhea-bloody at times. 4. Leukocytosis resolved. 5. Follow with serology. 6. Strep in the urine. 7. Continue with antibiotic as above. Monitor the patient clinically. Encourage nutritional support. Monitor the patient clinically, follow with the labs. Dictated by Dante Gonzalez PA-C (Al) Alo Lei MD /MODL /[id number]
--- NOTE | 2020-04-03 19:00 | NUR ---
RECEIVED REPORT FROM PREVIOUS NURSE. CALL LIGHT WITHIN REACH. PATIENT IN BED. BEDSIDE REPORT PERFORMED
[2020-04-03] MEDS: AZATHIOPRINE 50 MG TAB PO SCH (19:22)
[2020-04-04] VITALS (8 sets, daily range): BP systolic 113–131; BP diastolic 67–82
[2020-04-04] MEDS: CEFEPIME 1GM/NS 0.9% 50 ML 50 ML IV SCH ×3 (01:28→15:44)
[2020-04-04] MEDS: METRONIDAZOLE 500MG/NS 100ML 100 ML IV SCH ×3 (02:06→16:50)
[2020-04-04] MEDS: METHYLPREDNISOLONE SOD SUCC 40 MG/ML VIAL 1ML IV SCH ×4 (03:10→21:00)
[2020-04-04] MEDS: PANTOPRAZOLE 40 MG 10ML VIAL IV SCH ×2 (05:32→16:58)
--- NOTE | 2020-04-04 07:00 | NUR ---
RECEIVED PATIENT AWAKE RESTING IN BED NO S/S OF DISTRESS. BED LOW, WHEELS LOCKED, SIDE RAILS X2. CALL LIGHT IN REACH WILL CONTINUE TO MONITOR PATIENT.
--- NOTE | 2020-04-04 07:10 | NUR ---
GAVE BEDSIDE SHIFT REPORT TO ONCOMING NURSE. CALL LIGHT WITHIN REACH. PATIENT IN BED. HOURLY ROUNDING PERFORMED
--- NOTE | 2020-04-04 07:56 | NUR ---
Had 5 BMs last 24 hours. GI does not want dc until pt at or less than 3 a day
[2020-04-04] MEDS: DICYCLOMINE HCL 20 MG TAB PO PRN (08:09)
[2020-04-04] MEDS: ACETAMINOPHEN 325 MG TAB PO PRN (08:09)
[2020-04-04] MEDS: AZATHIOPRINE 50 MG TAB PO SCH (08:09)
[2020-04-04] MEDS: HYDROCORTISONE 100 MG/60 ML ENEMA RC SCH ×3 (09:00→21:00)
--- NOTE | 2020-04-04 09:09 | NUR ---
Met with Tru Mckenzie NP. Discussed pt status. Pt continues w/ multiple stools. GI has ordered multiple labs. Not ready for dc at this time.
[2020-04-04] MEDS ORDERED: DIATRIZOATE MEGL/DIATRIZOA SOD 30 ML BTL PO ONE (12:03)
--- NOTE | 2020-04-04 15:50 | NUR ---
PATIENT HAD 5 BOWEL MOVEMENTS DURING SHIFT. BOWEL MOVEMENTS LIQUID AND BLOODY.
[2020-04-04 18:15] LABS: BASOPHILS # (AUTO) 0.1 (0.0-0.1); BASOPHILS % 0.5 % (0.0-1.0); EOSINOPHILS % 0.1 % (0.0-6.0); HEMATOCRIT 36.9 % (34.2-44.1); HEMOGLOBIN 11.4 g/dL (12.0-16.0); LYMPHOCYTES # (AUTO) 1.8 (1.0-3.2); LYMPHOCYTES % 12.9 % (18.0-39.1); MEAN CORPUSCULAR HEMOGLOBIN 24.9 pg (28-32); MEAN CORPUSCULAR HGB CONC 30.9 g/dL (31-35); MEAN CORPUSCULAR VOLUME 80.6 fL (81-99); MONOCYTES # (AUTO) 0.7 (0.2-0.8); MONOCYTES % 4.9 % (4.4-11.3); NEUTROPHILS # (AUTO) 10.2 (2.1-6.9); NEUTROPHILS % 72.4 % (38.7-80.0); PLATELET COUNT 332 x10e3/uL (140-360); RED BLOOD COUNT 4.58 x10e6/uL (3.6-5.1); RED CELL DISTRIBUTION WIDTH 16.7 % (11.7-14.4)
[2020-04-04] MEDS ORDERED: SODIUM CHLORIDE 0.9% 50ML 50 ML ONE (18:22)
[2020-04-04] MEDS ORDERED: IOPAMIDOL 370 MG/ML 200 ML INFUS..BTL INJ ONE (18:22)
--- NOTE | 2020-04-04 18:22 | NUR ---
SPOKE WITH GRAYSON HOPE REGARDING DR. HERNDON INITIATING TRANSFER TO [facility].
[2020-04-04 18:32] LABS: ALANINE AMINOTRANSFERASE 17 IU/L (0-55); ALBUMIN 3.2 g/dL (3.5-5.0); ALBUMIN/GLOBULIN RATIO 1.1 (0.8-2.0); ALKALINE PHOSPHATASE 41 IU/L (40-150); ANION GAP 13.1 mmol/L (8-16); BLOOD UREA NITROGEN 9 mg/dL (7-26); BUN/CREATININE RATIO 12 (6-25); CALCIUM 8.8 mg/dL (8.4-10.2); CARBON DIOXIDE 29 mmol/L (22-29); CHLORIDE 101 mmol/L (98-107); CREATININE, SERUM 0.73 mg/dL (0.57-1.11); EST GLOMERULAR FILTRATION RATE > 60 ML/MIN (60-); GLUCOSE 146 mg/dL (74-118); POTASSIUM 4.1 mmol/L (3.5-5.1); SODIUM 139 mmol/L (136-145)
[2020-04-04] MEDS ORDERED: Azathioprine PO (19:43)
[2020-04-04] MEDS ORDERED: CORTENEMA100 MG/60 RC (19:43)
[2020-04-04] MEDS ORDERED: METRONIDAZ500 MG/100 IV (19:43)
[2020-04-04] MEDS ORDERED: ACETAMINOPHEN325 M1 PO (19:43)
[2020-04-04] MEDS ORDERED: PROTONIX IV40 MG IV (19:43)
[2020-04-04] MEDS ORDERED: Methylprednisolone Sod Succ IV (19:43)
[2020-04-04] MEDS ORDERED: LEVSIN-SL0.125 MG SL (19:43)
[2020-04-04] MEDS ORDERED: Morphine Sulfate 2MG/Ml IV (19:43)
[2020-04-04] MEDS ORDERED: Metoprolol Tartrate Inj IV (19:43)
[2020-04-04] MEDS ORDERED: ONDANSETRON4 MG/2 M1 IV (19:43)
[2020-04-04] MEDS ORDERED: CEFEPIME HCL1 GM IV (19:43)
[2020-04-04] MEDS ORDERED: DICYCLOMINE HCL20 MG PO (19:43)
[2020-04-04 19:47] LABS: BAND NEUTROPHILS % (MANUAL) 2 %; EOSINOPHILS % (MANUAL) 1 % (0-7); LYMPHOCYTES % (MANUAL) 16 % (19-48); MONOCYTES % (MANUAL) 5 % (3.4-9.0); MYELOCYTES % (MANUAL) 2 % (0-0); NEUTROPHILS % (MANUAL) 74 % (40-74); PLATELET ESTIMATE ADEQUATE; PLATELET MORPHOLOGY COMMENT NORMAL; RBC MORPHOLOGY COMMENT ABNORMAL
[2020-04-04 19:48] LABS: ANISOCYTOSIS SLIGHT; HYPOCHROMASIA SLIGHT; TOXIC GRANULATION SLIGHT
[2020-04-04 19:55] LABS: MICROCYTOSIS SLIGHT
--- NOTE | 2020-04-04 20:04 | Diagnostic Imaging Report ---
EXAMINATION: CT of the abdomen and pelvis with contrast. TECHNIQUE: Spiral CT images of the abdomen and pelvis were performed from the lung bases to the lesser trochanters after the intravenous administration of 100 cc of Isovue 370 and the oral administration of dilute Gastrografin. Coronal and sagittal reformatted images were obtained. COMPARISON: CT abdomen and pelvis 03/24/2020 CLINICAL HISTORY:Ulcerative colitis, follow-up on inflammation, abdominal pain DISCUSSION: ABDOMEN/PELVIS: LOWER THORAX:Unremarkable. HEPATOBILIARY: No focal hepatic lesions. No intra or extrahepatic biliary ductal dilation. GALLBLADDER: No radio-opaque stones or sludge. No wall thickening. SPLEEN: Stable splenomegaly, measuring 17.0 cm in AP diameter. PANCREAS: No focal masses or ductal dilatation. ADRENALS: No adrenal nodules. KIDNEYS/URETERS: No hydronephrosis, stones, or solid mass lesions. PELVIC ORGANS/BLADDER: Bladder and uterus are unremarkable. No adnexal masses. PERITONEUM/RETROPERITONEUM: No free air or fluid. LYMPH NODES: No intra-abdominal, retroperitoneal, pelvic or inguinal lymphadenopathy. VESSELS: The celiac trunk,superior and inferior mesenteric and bilateral renal arteries are patent The portal, superior mesenteric and splenic veins are patent. GI TRACT: Mild improvement in previously visualized surrounding stranding in the distal descending and proximal sigmoid colon. There is mild circumferential wall thickening involving the rest of the sigmoid colon extending to the rectum, with mild wall enhancement and prominence of the basilar rectum (for example series 2, image 80). This wall thickening and enhancement is slightly worse than on prior exam. No foci of extraluminal air or well-defined enhancing fluid collections. Rest of the bowel shows no wall thickening or surrounding inflammatory changes. No bowel dilation or evidence of obstruction. Stomach is unremarkable. BONES AND SOFT TISSUE: No aggressive lytic or suspicious focal sclerotic lesions. Degenerated disc at L5-S1 with intervertebral disc space narrowing and vacuum phenomenon. No soft tissue abnormalities. IMPRESSION: 1. Mild improvement in the previously visualized focal area of inflammatory bowel disease/colitis involving the distal descending/proximal sigmoid colon, however, there is more prominent wall thickening, increased vascularity and wall enhancement in the rest of the sigmoid extending to the rectum, suggesting active ulcerative colitis. No evidence of perforation or adjacent abscess formation. 2. Stable splenomegaly. Signed by: Dr. Leroy Chaudhry M.D. on 04/04/2020 8:00 PM
--- NOTE | 2020-04-04 21:54 | NUR ---
BEDSIDE SHIFT REPORT RECEIVED FROM DAY RN. PT IS ALERT AND ORIENTED X4. RESPIRATIONS EVEN AND UNLABORED . PT HAD ONE STOOL THIS SHIFT. PT DENIES PAIN PT INFORMED TO TRANSFER TO [facility].CALL LIGHT WITHIN REACH. BED LOCKED IN LOW POSITION.
--- NOTE | 2020-04-04 22:40 | Discharge Summary ---
ADDITIONAL CONSULTING PHYSICIANS: 1. Dr. Desmond Jules with Gastroenterology. 2. Dr. Kieran Tan with Surgery. 3. Dr. Alo Lei with Infectious Disease. CHIEF COMPLAINT: Abdominal pain. HISTORY OF PRESENT ILLNESS: The patient is a 34-year-old female, who was admitted via the emergency department with abdominal pain. She stated that she was scheduled for a CT, EGD, and colonoscopy for the emergency department physician's documentation. She reported that the pain had been present for 2 weeks prior to arrival and also present after drinking and eating and was gradual in onset, intermittent, and then continued to progressively get worse. She was originally having back pain, went to see her PCP, Dr. Solorzano or about March 02 or . At that time, she was taking steroids, Toradol, prednisone, naproxen and muscle relaxers for the back pain and the prednisone had been on a 7-day step-down regimen. Then 1 or 2 days after the prednisone, she began having the abdominal pain, which was diffuse all over. She also expressed that she was having diarrhea and nausea, especially with cold liquids. The pain would not cease and became intolerable after about 3 days of diarrhea. She noted that she was having bright red blood per rectum. Thus, she came to the emergency room for evaluation. PAST MEDICAL HISTORY: Includes hypertension with her last , however, after the the hypertension dissipated. She also has some history of migraines and psoriasis. PAST SURGICAL HISTORY: Tubes in the ears as a child, wisdom teeth removed after her . She had tubal ligation, cyst removed from her head. FAMILY HISTORY: Mother had GI problems with diverticulitis and spastic ileitis. SOCIAL HISTORY: She has a history of smoking about a pack of cigarettes a week for six years. She drank alcohol some when she was younger, but has since quit. She denies any illicit drug use. 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 ALLERGIES: PROMETHAZINE. THE PATIENT STATES THAT SHE WAS HAVING SOME MIGRAINES AND WENT TO HER DOCTOR'S OFFICE, RECEIVED A DOSE OF PHENERGAN IN THE MUSCLE AT THE RIGHT THIGH AREA AND SHE SAID SOON SHE RECEIVED THAT, THE RIGHT LEG BEGAN BURNING SIGNIFICANTLY ON THE INSIDE AFTER SHE RECEIVED IT. ADMITTING DIAGNOSES: 1. Left lower quadrant colitis. 2. Anemia due to acute blood loss. 3. Dehydration. 4. Acute hypomagnesemia. 5. Morbid obesity with BMI 43.78. DISCHARGE DIAGNOSES: 1. Severe ulcerative colitis with christian bright red blood per rectum. 2. Gastritis. 3. Mild acute hyper magnesemia. 4. GI bleed due to number 1, anemia, iron deficiency. 5. Morbid obesity with BMI 43.78. On 03/24, WBC 8.57, hemoglobin 11.6, hematocrit 35.8, platelets 246, neutrophils 55%. PT 13.3, INR 0.96, PTT 27.9, sodium 139, potassium 3.8, chloride 104, CO2 23, anion gap 15.8, BUN 6, creatinine 0.83. An estimated GFR greater than 60, glucose 95, calcium 8.5, magnesium 1.6, total bilirubin 0.8, AST 16, ALT 18, alkaline phosphatase 58. Creatine kinase 92, CK-MB 0.9, troponin I 0.008. Total protein 6.8, albumin 3.1. Qualitative HCG human chorionic gonadotropin negative. Final urine culture grew Streptococcus agalactiae group B. On 03/25, ova and parasite smear final showed no ova, cysts, or parasites. Giardia antigen, EIA was negative. No Salmonella or Shigella was recovered and no Campylobacter species was isolated. On 03/24, coronavirus PCR was not detected. On 03/25, Clostridium difficile toxin A and B were negative. It was again negative on 03/31 and 04/01. On 03/25, S cerevisiae IgG antibody was less than 20 as well as the S cerevisiae IgA antibody also less than 20. On 03/25, atypical p-ANCA was less than ratio 1 to 20. On 03/25, stool for lactoferrin was positive and a stool for calprotectin was 3109, still for calprotectin on 04/01 remains pending. Cytomegalovirus IgG antibody and E histolytica IgG antibody and E coli O157 antigen are all pending. On 03/30, blood cultures x2 show no growth after 5 days that is the final result. On 03/31, stool culture and sensitivity final result for Salmonella or Shigella showed no Salmonella or Shigella recovered and there was no Yersinia isolated. Campylobacter culture same day pending. E coli, Shigella toxin final result is negative. On 03/26 duodenum, antrum biopsy from the stomach not otherwise specified was completed. The final diagnoses from her EGD colonoscopy showed duodenum, 2nd portion, biopsy with mild chronic duodenitis. Stomach, antrum, biopsy reactive gastropathy, negative for Helicobacter pylori. Stomach, body, polyp, biopsy showed hyperplastic polyp with increased stromal inflammation. The colon, random, biopsies showed mild chronic colitis. The large bowel, rectum, polypectomy showed hyperplastic polyp, ulcerated associated chronic and associated chronic active colitis, large bowel, rectum, biopsy showed chronic active colitis. CT of the abdomen and pelvis done on 03/24/2020, showed left lower quadrant colitis, inflammatory versus infectious. Chest x-ray on 03/24/2020, showed no focal airspace consolidation. No pleural effusion. No pneumothorax. Soft tissues and bones with no acute abnormality. Abdominal x-ray done on 04/02 showed nonobstructive bowel gas pattern. CT of the abdomen and pelvis completed today 04/04 with results pending. Diagnoses listed from 03/25, EGD with polypectomy and biopsies and colonoscopy with biopsies were mild distal esophagitis. Biopsy gastritis, distal body gastric polyp partially excised with the cold biopsy forceps and finally rule out sprue. Diagnoses listed by Dr. Tan included active ulcerative colitis and proctitis. During her stay, the patient has been on cefepime and Flagyl antibiotics and Infectious Disease is followed. She has had persistent abdominal pain, multiple diarrhea stools per day, usually about 5 or 6 per day toward the end of her stay. She tolerated full liquid diet well. However, the GI soft diet, she did not tolerate as well. She continues to have watery stools, and most notably today most of her stool is blood i.e. more blood than stool. Potassium level 3.1 on 03/27 and repleted. She has had anemia with hemoglobin 10.5 on 03/27 thus, very tired, weak. She has denied nausea or vomiting. Venofer iron infusions were utilized for iron deficiency anemia. Potassium level 2.7 on 03/29 and repleted. She has received IV steroid, Solu-Medrol and steroid enemas. She was on balsalazide 750 mg p.o. 3 tablets p.o. t.i.d. She was on Bentyl and Lomotil. CRP and sedimentation rate were elevated. ESR 32, CRP 52. The patient did not seem to progress. She is steroid resistant, still having recurrent bloody BMs. Dr. Jules discussed with the Pharmacy regarding securing infliximab, however, was not available and nor were the administration of biologics or in the hospital protocol. Thus, the patient will need transfer to another facility where this is available. The patient will be transferring to [facility] with Dr. Masoud Zhong, a hospitalist there. Dr. Jules has already spoken with this physician, given the report several outstanding labs pending as mentioned above. The T-Spot TB test and acute hepatitis panel also remain pending. Final results of Yersinia, E coli O157: H7 and amoeba are pending. The patient will remain on a GI soft diet as tolerated. She had least five stools today. Still having abdominal pain with defecation and eating, tired, fatigued. The patient's at the bedside earlier today and is aware of the patient's impending transfer. Vital signs from this morning, temperature 97.8, heart rate 72, blood pressure 131/81, respirations 18, and oxygen saturation 98%. Most recent vital signs, temperature 97.7, heart rate 77, respirations 18, blood pressure 125/82, oxygen saturation 100% on room air. Lab holiday was intended and labs were not collected this morning. Later on in the day around 06:00 p.m. on 04/04; WBC 14.09, hemoglobin 11.4, hematocrit 36.9, platelets 332, neutrophils 72.4%. Sodium 139, potassium 4.1, chloride 101, CO2 of 29, BUN 9, anion gap 13.1, creatinine 0.73, estimated GFR greater than 60, glucose 146, calcium 8.8, total protein 0.5, AST 10, ALT 17, alkaline phosphatase 41, total protein 6.1, albumin 3.2. The activity level as tolerated. Follow up with aforementioned hospitalist at [facility]. The patient will be discharged from her room 213 at [facility] to room 8 at [facility]. Dictated by Tru Mckenzie, GRAYSON Donato Redding MD HWP/MODL /[id number]
== END 2020-04-04 20:51 | disposition short-term general hospital (02) | DRG 386 ==
LOC: ER 14:35 → ERHOLD 17:27 → MED/SURG2 20:25
PROVIDERS: ADMIT Internal Medicine; ATTEND Internal Medicine
PROC: 0DB68ZZ Excision of Stomach, Via Natural or Artificial Opening Endoscopic (ICD-10-PCS; principal; 2020-03-24)
PROC: 0DB98ZX Excision of Duodenum, Via Natural or Artificial Opening Endoscopic, Diagnostic (ICD-10-PCS; 2020-03-24)
PROC: 0DB78ZX Excision of Stomach, Pylorus, Via Natural or Artificial Opening Endoscopic, Diagnostic (ICD-10-PCS; 2020-03-24)
PROC: 0DBP8ZX Excision of Rectum, Via Natural or Artificial Opening Endoscopic, Diagnostic (ICD-10-PCS; 2020-03-24)
PROC: 0DBE8ZX Excision of Large Intestine, Via Natural or Artificial Opening Endoscopic, Diagnostic (ICD-10-PCS; 2020-03-24)
PROC: 02HV33Z Insertion of Infusion Device into Superior Vena Cava, Percutaneous Approach (ICD-10-PCS; 2020-03-28)
PROC: B548ZZA Ultrasonography of Superior Vena Cava, Guidance (ICD-10-PCS; 2020-03-28)
DX: K51.511 Left sided colitis with rectal bleeding (principal); D62 Acute posthemorrhagic anemia; Z68.41 Body mass index [BMI] 40.0-44.9, adult; N39.0 Urinary tract infection, site not specified; K51.20 Ulcerative (chronic) proctitis without complications; E66.01 Morbid (severe) obesity due to excess calories; E83.42 Hypomagnesemia; K29.80 Duodenitis without bleeding; Z83.79 Family history of other diseases of the digestive system; E86.0 Dehydration; K20.9 Esophagitis, unspecified; K29.70 Gastritis, unspecified, without bleeding; K63.5 Polyp of colon; K62.1 Rectal polyp; E87.6 Hypokalemia; E83.41 Hypermagnesemia; B95.1 Streptococcus, group B, as the cause of diseases classified elsewhere; Z11.59 Encounter for screening for other viral diseases
CPT/HCPCS: 36415; 43239; 45380; 45385; 71045; 74019; 74177; 80048; 80053; 81001; 82150; 82306; 82550; 82553; 82607; 82728; 82746; 83036; 83540; 83630; 83690; 83735; 83993; 84100; 84132; 84443; 84466; 84484; 84702; 85014; 85018; 85025; 85045; 85610; 85651; 85730; 86140; 86256; 86644; 86671; 86753; 87040; 87045; 87046; 87086; 87177; 87328; 87493; 87635; 88305; 88312; 96360; 96367; 96375; 96376; 99284; J0692; J1756; J2250; J2270; J2405; J2543; J2920; J3010; J3475; J3480; J7030; J7050; P9047; Q9967

== ENCOUNTER 2022-11-26 22:23 | Emergency (ER) | payer OTHER ==
[~2022-11-26] VITALS: Ht 172.7 cm; Wt 127.0 kg
[~2022-11-26 22:23] MED LIST: ACETAMINOPHEN325 M1 PO; Azathioprine PO; CEFEPIME HCL1 GM IV; CORTENEMA100 MG/60 RC; DICYCLOMINE HCL20 MG PO; LEVSIN-SL0.125 MG SL; METRONIDAZ500 MG/100 IV; Methylprednisolone Sod Succ IV; Metoprolol Tartrate Inj IV; Morphine Sulfate 2MG/Ml IV; ONDANSETRON4 MG/2 M1 IV; PROTONIX IV40 MG IV
[2022-11-27] MEDS ORDERED: SODIUM CHLORIDE 0.9% 1000ML 1,000 ML IV STA (00:28)
[2022-11-27] MEDS ORDERED: ONDANSETRON HCL INJ 2MG/ML 2ML 2 MG/ML VIAL IV STA (00:31)
[2022-11-27] MEDS ORDERED: ACETAMINOPHEN 325 MG TAB PO STA (00:32)
[2022-11-27] MEDS ORDERED: Morphine 4mg INJECTION 4 MG/ML INJ IV ONE (00:45)
[2022-11-27 00:51] LABS: BASOPHILS # (AUTO) 0.1 (0.0-0.1); BASOPHILS % 0.8 % (0.0-1.0); EOSINOPHILS % 0.5 % (0.0-6.0); HEMATOCRIT 41.8 % (34.2-44.1); LYMPHOCYTES # (AUTO) 1.2 (1.0-3.2); LYMPHOCYTES % 16.2 % (18.0-39.1); MEAN CORPUSCULAR HEMOGLOBIN 27.7 pg (28-32); MEAN CORPUSCULAR HGB CONC 33.5 g/dL (31-35); MEAN CORPUSCULAR VOLUME 82.8 fL (81-99); NEUTROPHILS % 69.1 % (38.7-80.0); PLATELET COUNT 215 x10e3/uL (140-360); RED BLOOD COUNT 5.05 x10e6/uL (3.6-5.1); RED CELL DISTRIBUTION WIDTH 12.4 % (11.7-14.4)
[2022-11-27 01:08] LABS: ALBUMIN 3.8 g/dL (3.5-5.0); ALBUMIN/GLOBULIN RATIO 1.1 (0.8-2.0); ANION GAP 15.7 mmol/L (8-16); CALCIUM 8.8 mg/dL (8.4-10.2); CREATININE, SERUM 0.87 mg/dL (0.57-1.11); POTASSIUM 3.7 mmol/L (3.5-5.1)
[2022-11-27 01:21] LABS: AMPHETAMINES SCREEN,URINE NEGATIVE (NEGATIVE); BENZODIAZEPINES SCREEN,URINE NEGATIVE (NEGATIVE); CLARITY,URINE SL CLOUDY (CLEAR); COLOR,URINE YELLOW (YELLOW); PHENCYCLIDINE SCREEN,URINE NEGATIVE (NEGATIVE)
[2022-11-27 01:33] LABS: BACTERIA,URINE MODERATE /HPF; EPITHELIAL CELLS,URINE MODERATE /LPF; KETONES,URINE NEGATIVE (NEGATIVE); LEUKOCYTE ESTERASE ,URINE NEGATIVE (NEGATIVE); MUCUS,URINE MANY (RARE); NITRITE,URINE NEGATIVE (NEGATIVE); PROTEIN,URINE DIPSTICK NEGATIVE (NEGATIVE); RBC,URINE 0-5 /HPF (0-5); URINE UROBILINOGEN 0.2 mg/dL (0.2 - 1); WBC,URINE (MAN) 0-5 /HPF (0-5)
[2022-11-27] MEDS ORDERED: IOPAMIDOL 370 MG/ML 100 ML INFUS..BTL INJ ONE (01:46)
[2022-11-27] MEDS ORDERED: ONDANSETRON ODT4 MG PO (02:37)
[2022-11-27] MEDS ORDERED: CIPRO500 MG PO (02:37)
[2022-11-27] MEDS ORDERED: ACETAMINOPHEN-1 EAC4 PO (02:37)
[2022-11-27 03:03] VITALS: BP 127/67
== END 2022-11-27 02:51 | disposition home or self-care (01) ==
LOC: ER 22:31
DX: U07.1 COVID-19 (principal); R65.20 Severe sepsis without septic shock; K50.90 Crohn's disease, unspecified, without complications; Z88.8 Allergy status to other drugs, medicaments and biological substances; Z79.899 Other long term (current) drug therapy
CPT/HCPCS: 36415; 74177; 80053; 80307; 81001; 81025; 83605; 83690; 85025; 87040; 99284; J2270; J2405; J2543; J7030; Q9967; U0002

== ENCOUNTER 2024-10-21 12:15 | Emergency (ER) | payer OTHER ==
[~2024-10-21] VITALS: Ht 170.2 cm; Wt 117.5 kg
[~2024-10-21 12:15] MED LIST changes: +ACETAMINOPHEN-1 EAC4 PO; +AUGMENTIN 500-1 EACH PO; +CIPRO500 MG PO; +HYDROCODON-ACE1 EA11 PO; +ONDANSETRON ODT4 MG PO
[2024-10-21 12:58] VITALS: PULSE 91; RESP 18; TEMP 98.1
[2024-10-21] MEDS ORDERED: KETOROLAC TROMETHAMINE 30 MG/ML VIAL ONE ×2 (14:58→15:06)
[2024-10-21] MEDS: KETOROLAC TROMETHAMINE 60 MG/2 ML VIAL IM ONE (15:11)
[2024-10-21 15:17] VITALS: BP 122/84; PULSE 71; RESP 16; TEMP 98.3; O2SAT 98
== END 2024-10-21 15:19 | disposition home or self-care (01) ==
LOC: ER 14:45
DX: S00.03XA Contusion of scalp, initial encounter (principal); W20.8XXA Other cause of strike by thrown, projected or falling object, initial encounter; Y92.89 Other specified places as the place of occurrence of the external cause; Z87.19 Personal history of other diseases of the digestive system
CPT/HCPCS: 70450; 72125; 99284; J1885